=== PATIENT | female | born 1960 | race Asian ===

== ENCOUNTER 2019-09-06 15:28 | Emergency (ER) | payer OTHER, SELFPAY ==
[2019-09-06 15:36] VITALS: BP 150/67; PULSE 90; RESP 22; TEMP 36.6; O2SAT 100
[2019-09-06 16:54] LABS: Add Manual Diff / Slide Review NO; Basophils Absolute Auto 0 /uL (0-100); Basophils Percent Auto 0.6 % (0-2); Eosinophils Absolute Auto 0 /uL (0-450); Eosinophils Percent Auto 0.5 % (2-4); Hematocrit 37.7 % (36-46); Hemoglobin 12.9 g/dL (12.0-16.0); Lymphocytes Absolute Auto 2400 /uL (1100-4500); Lymphocytes Percent Auto 29.3 % (25-40); Mean Corpuscular HGB Conc 34.2 % (30-36); Mean Corpuscular Hemoglobin 33.1 PG (26-34); Mean Corpuscular Volume 96.9 fL (80-100); Monocytes Absolute Auto 500 /uL (0-900); Monocytes Percent Auto 6.6 % (3-14); Neutrophils Absolute Auto 5200 /uL (1500-7000); Platelet Count 203 X10^3/uL (150-400); Red Blood Cell Count 3.89 X10^6/uL (4.0-5.2); Red Cell Distribution Width 13.5 % (11.6-14.8); White Blood Cell Count 8.3 X10^3/uL (4.5-11.0)
[2019-09-06 17:00] LABS: Alanine Aminotransferase 18 IU/L (<35); Albumin 4.3 g/dL (3.5-5.0); Albumin Globulin Ratio 1.1 (1.0-2.8); Alkaline Phosphatase 74 U/L (38-126); Aspartate Aminotransferase 31 IU/L (14-36); Bilirubin Total 0.4 mg/dL (0.2-1.3); Blood Urea Nitrogen 16 mg/dL (7-17); Calcium 9.1 mg/dL (8.4-10.2); Carbon Dioxide 27 mmol/L (22-32); Chloride 109 mmol/L (98-107); Estimated Glomerular Filt Rate > 60.0 mL/min (>60); Glucose 97 mg/dL (80-110); HEMOLYSIS 19 (0-50); Potassium 3.7 mmol/L (3.4-5.1); Sodium 142 mmol/L (137-145); Total Protein 8.3 g/dL (6.3-8.2)
--- NOTE | 2019-09-06 17:00 | ED_ITS ---
HPI - GI Bleed General Chief complaint: GI Bleed Stated complaint: bleeding since yesterday Time Seen by Provider: 09/06/19 16:48 Source: patient Mode of arrival: Ambulatory Limitations: no limitations History of Present Illness HPI Narrative: 59-year-old female here for evaluation of approximately 2 days of bright red blood per rectum. He states symptoms started approximately 48 hours ago. Had multiple episodes of bright red blood. Did not have any pain in her abdomen that time. No nausea vomiting. No recent travel. No recent antibiotics. Was not painful for her to go to the bathroom within her abdomen also in the rectum. No urinary symptoms. No vaginal bleeding. Patient states that today she also had multiple episodes of bright red blood per rectum. Again no nausea vomiting or urinary symptoms or vaginal bleeding. She states that today she started to have left-sided abdominal pain. Patient does state she has had a colonoscopy approximately 8 years ago. She was told to return in 10 years for repeat. She was told everything was unremarkable. Denies any history of hemorrhoids. Review of Systems Constitutional Constitutional: Denies fatigue, Denies fever(s) and Denies headache(s) ENT Ears, Nose, Mouth, and Throat: Denies headache(s) Cardiovascular Cardiovascular: Denies chest pain and Denies dyspnea Respiratory Respiratory: Denies cough and Denies dyspnea Gastrointestinal Gastrointestinal: Reports abdominal pain, Denies melena, Reports hematochezia, Denies coffee ground emesis, Denies constipation, Reports diarrhea, Reports loose stools, Denies nausea and Denies vomiting Genitourinary Genitourinary: Denies dysuria Genitourinary: Denies dysuria Musculoskeletal Musculoskeletal: Denies back pain Integumentary/Breasts Skin/Breast: Denies lesions and Denies rash Neurologic Neurologic: Denies headache(s) Endocrine Endocrine: Denies fatigue Hematologic/Lymphatic Hematologic/Lymphatic: Denies easy bleeding and Denies easy bruising Allergic/Immunologic Allergic/Immunologic: Denies urticaria Patient History Medical History Healthy adult (Acute) Social History Smoking Status: Current every day smoker Smoking Status: Current every day smoker Exam Initial Vital Signs Initial Vital Signs: Vital Signs Temperature 97.9 F 09/06/19 15:36 Pulse Rate 90 09/06/19 15:36 Respiratory Rate 22 09/06/19 15:36 Blood Pressure 150/67 H 09/06/19 15:36 Pulse Oximetry 100 09/06/19 15:36 Const General: cooperative, comfortable, well developed and well groomed Limitations: mental status not altered HENCT Head: normal to inspection and normocephalic Resp Effort & Inspection: normal respiratory effort Auscultation: clear to auscultation bilaterally Cardio Rate: regular rate Rhythm: regular rhythm GI Inspection: non-distended Palpation: soft, No firm and tender (Left lower quadrant) Rectal Exam: visual inspection normal, normal sphincter tone, No abnormal stool, No hemorrhoids, No lesions, No mass and No tenderness Back/Spine/Pelvis Back: No CVA tenderness Skin Lesions: no lesions Rashes: no rashes Neuro General: patient alert and patient awake Cognition: normal cognition Speech: speech normal Extrem General: normal to inspection and capillary refill normal Psych Appearance: grossly normal and well kempt Scores GCS [place] coma scale eye opening: Spontaneous Sp coma scale verbal response: Orientated Sp coma scale motor response: Obey commands Sp coma scale total score: 15 Course Orders Ordered: ED Orders 09/06/19 16:40 Complete Blood Count AUTO DIFF Stat Comprehensive Metabolic Panel Stat 09/06/19 17:01 CT abdomen pelvis w con Stat Discontinued Medications Sodium Chloride (Normal Saline 0.9%) 1,000 mls @ 1,000 mls/hr IV BOLUS ONE Stop: 09/06/19 18:00 Last Admin: 09/06/19 17:46 Dose: Not Given Documented by: MARIA EUGENIA Vital Signs Vital signs: Vital Signs - 8 hr 09/06/19 15:36 09/06/19 17:30 Temperature 97.9 F Pulse Rate 90 81 Respiratory Rate 22 19 Blood Pressure 150/67 H Blood Pressure [Left Arm] 146/66 H Pulse Oximetry 100 99 MDM - GI Bleed Lab Data Attestation: I reviewed the patient's lab results. Result diagrams: 09/06/19 16:40 09/06/19 16:40 Labs: Lab Results 09/06/19 09/06/19 Range/Units 16:40 16:40 WBC 8.3 (4.5-11.0) X10^3/uL RBC 3.89 L (4.0-5.2) X10^6/uL Hgb 12.9 (12.0-16.0) g/dL Hct 37.7 (36-46) % MCV 96.9 (80-100) fL MCH 33.1 (26-34) PG MCHC 34.2 (30-36) % RDW 13.5 (11.6-14.8) % Plt Count 203 (150-400) X10^3/uL Neut % (Auto) 63.0 (50-75) % Lymph % (Auto) 29.3 (25-40) % [place] % (Auto) 6.6 (3-14) % Eos % (Auto) 0.5 L (2-4) % Baso % (Auto) 0.6 (0-2) % Neut # (Auto) 5200 (3324-6233) /uL Lymph # (Auto) 2400 (7378-1978) /uL [place] # (Auto) 500 (0-900) /uL Eos # (Auto) 0 (0-450) /uL Baso # (Auto) 0 (0-100) /uL Sodium 142 (137-145) mmol/L Potassium 3.7 (3.4-5.1) mmol/L Chloride 109 H (98-107) mmol/L Carbon Dioxide 27 (22-32) mmol/L BUN 16 (7-17) mg/dL Creatinine 0.84 (0.52-1.04) mg/dL Estimated GFR > 60.0 (>60) mL/min BUN/Creatinine Ratio 19.0 (6-22) Glucose 97 (80-110) mg/dL Calcium 9.1 (8.4-10.2) mg/dL Total Bilirubin 0.4 (0.2-1.3) mg/dL AST 31 (14-36) IU/L ALT 18 (<35) IU/L Alkaline Phosphatase 74 (38-126) U/L Total Protein 8.3 H (6.3-8.2) g/dL Albumin 4.3 (3.5-5.0) g/dL Globulin 4.0 (1.7-4.1) g/dL Albumin/Globulin Ratio 1.1 (1.0-2.8) Imaging Data CT scan - abdomen/pelvis: Radiologist's Impression: [address] [address] [address] Scan Report Signed Patient: Ruth Greene [facility]#: [id number] : 9Acct:[id number] Age/Sex: 59 / FDate of Service: 09/06/19 Loc: ED Accession Number: [id number] Procedure: CT abdomen pelvis w con Ordering Provider: Mode Ochoa D.O. PROCEDURE: CT ABDOMEN PELVIS W CON INDICATIONS: Left-sided abdominal pain concern for diverticulitis TECHNIQUE: After the administration of oral and intravenous contrast, 5 mm thick sections acquired from the diaphragms to the symphysis. 5 mm thick coronal and sagittal reformats were performed. For radiation dose reduction, the following was used: automated exposure control, adjustment of mA and/or kV according to patient size. COMPARISON: None. FINDINGS: Image quality: Excellent. ABDOMEN: Lung bases: Lung bases are clear. Heart size is normal. Solid organs: Liver is normal in size and enhancement. 2 subcentimeter hepatic cysts are noted, containing water density. Gallbladder appears normal. Biliary system is non-dilated. Pancreas enhances normally. Spleen is normal in size and enhancement. No adrenal nodules. Kidneys are normal in size and enhancement, without hydronephrosis. Peritoneum and bowel: Stomach, small bowel, and colon loops are normal in caliber and wall thickness. No free fluid or air. Nodes and vessels: No retroperitoneal or mesenteric adenopathy. Aorta and inferior vena cava are normal in caliber. Miscellaneous: No ventral hernias. PELVIS: Genitourinary: Bladder wall thickness is normal. Miscellaneous: No inguinal hernias or adenopathy. At the left lower quadrant a portion of the descending colon near the junction with the sigmoid colon is mildly wall thickening without acute diverticulitis adjacent, and this pattern of mild wall thickening with adjacent pericolonic edema extends into the proximal sigmoid colon. Appearances that of colitis rather than acute diverticulitis. There is a very small amount of free pelvic water density fluid deep within the cul-de-sac area. Bones: No suspicious bony lesions. No vertebral body compression fractures. IMPRESSION: Acute colitis, rather than diverticulitis, appears present at the left lower quadrant mild to moderate in overall severity. While there is mild diverticulosis no acute diverticulitis is suspected. Dictated by: Triston Aggarwal M.D. on 09/06/2019 at 17:32 Approved by: Triston Aggarwal M.D. on 09/06/2019 at 17:35 MDM Narrative Medical decision making narrative: Initially concern for diverticulitis however the CT scan is more consistent with colitis. This very well could explain her symptoms. She had no hemorrhoids or fissures on the exam. No recent antibiotics. No recent travel. No fevers. No indication for antibiotics today. Will hold on further workup for now. Patient was given return precautions and follow-up instructions. She expressed understanding and agreement. Discharge Plan Departure Patient Disposition: Home Clinical Impression: Colitis Discharge Date/Time: 09/06/19 17:51 Instructions: DI for Colitis Activity Restrictions/Additional Instructions: Be sure to increase your fluid intake. Contact your primary provider for follow-up. Return to the emergency department for any new or worsening symptoms
[2019-09-06 17:30] VITALS: BP 146/66; PULSE 81; RESP 19; O2SAT 99
== END 2019-09-06 17:51 | disposition home or self-care (01) ==
PROVIDERS: Emergency Provider Emergency Medicine
DX: K52.9 Noninfective gastroenteritis and colitis, unspecified (principal); R10.9 Unspecified abdominal pain; K92.1 Melena
CPT/HCPCS: 36415; 74177; 80053; 85025; 99284; 99285; Q9967

== ENCOUNTER 2020-11-24 19:58 | Emergency (ER) | payer OTHER, SELFPAY ==
[2020-11-24] VITALS (9 sets, daily range): BP systolic 110–127; BP diastolic 54–61; PULSE 82–106; RESP 18; TEMP 36.7–38.3; O2SAT 99–100; BMI 19.2
[2020-11-24 21:01] LABS: RBC Urine 0-1/HPF (0-5/HPF); WBC Urine >100/HPF (0-5/HPF)
[2020-11-24 21:01] LABS: Add Manual Diff / Slide Review NO; Basophils Absolute Auto 0 /uL (0-100); Basophils Percent Auto 0.3 % (0-2); Eosinophils Absolute Auto 0 /uL (0-450); Hematocrit 37.4 % (36-46); Hemoglobin 12.4 g/dL (12.0-16.0); Lymphocytes Absolute Auto 1500 /uL (1100-4500); Lymphocytes Percent Auto 11.7 % (25-40); Mean Corpuscular HGB Conc 33.2 % (30-36); Mean Corpuscular Hemoglobin 31.7 PG (26-34); Mean Corpuscular Volume 95.4 fL (80-100); Monocytes Absolute Auto 1100 /uL (0-900); Neutrophils Absolute Auto 10000 /uL (1500-7000); Platelet Count 175 X10^3/uL (150-400); Red Blood Cell Count 3.92 X10^6/uL (4.0-5.2); Red Cell Distribution Width 12.8 % (11.6-14.8); White Blood Cell Count 12.6 X10^3/uL (4.5-11.0)
[2020-11-24 21:02] LABS: Bacteria Urine Many (>30); Culture Indicated Urine Specimen Cultured; Hyaline Casts Urine 1-5/LPF; Squamous Epithelial Cell Urine 0-1 /HPF (0-5/HPF)
[2020-11-24] MEDS: SODIUM CHLORIDE 0.9% 1,000 ML 150 ML IV (21:03)
[2020-11-24 21:12] LABS: Alanine Aminotransferase 30 IU/L (<35); Albumin 4.1 g/dL (3.5-5.0); Alkaline Phosphatase 112 U/L (38-126); Aspartate Aminotransferase 32 IU/L (14-36); BUN Creatinine Ratio 21.2 (6-22); Bilirubin Total 1.2 mg/dL (0.2-1.3); Blood Urea Nitrogen 21 mg/dL (7-17); Carbon Dioxide 25 mmol/L (22-32); Chloride 99 mmol/L (98-107); Globulin 4.2 g/dL (1.7-4.1); Glucose 177 mg/dL (80-110); HEMOLYSIS < 15 (0-50); Lipase 31 U/L (23-300); Potassium 3.8 mmol/L (3.4-5.1); Sodium 133 mmol/L (137-145); Total Protein 8.3 g/dL (6.3-8.2)
--- NOTE | 2020-11-24 21:16 | DI.CT.S_ITS ---
PROCEDURE: CT ABDOMEN PELVIS W CON INDICATIONS: severe RLQ pain, fever, chills septic TECHNIQUE: After the administration of intravenous contrast, axial sections acquired from the lung bases to the pubic symphysis. Coronal and sagittal reformats were performed. For radiation dose reduction, the following was used: automated exposure control, adjustment of mA and/or kV according to patient size. COMPARISON: [facility], CT, CT ABDOMEN PELVIS W CON, 09/06/2019, 17:08. FINDINGS: Image quality: Excellent. Lung bases: Unremarkable. Heart: No significant findings. ABDOMEN: Liver: Unremarkable. Gallbladder: Unremarkable. Biliary ducts: Unremarkable. Pancreas: Unremarkable. Spleen: Unremarkable. Adrenal Glands: Unremarkable. Kidneys and Ureters: Right renal heterogeneous enhancement is noted. Mild right renal perinephric stranding. Left kidney is normal in appearance. No hydronephrosis. Stomach and Bowel: Stomach, small bowel loops, and colon are unremarkable. Scattered colonic diverticuli without evidence of diverticulitis. Appendix is not visualized, however no free fluid or inflammatory changes are noted adjacent to the cecum. Peritoneum: Trace right perinephric fluid and trace fluid in the right pericolic gutter. No free air. Ventral Wall: No hernias. Abdominal Nodes: No retroperitoneal or mesenteric adenopathy by size criteria. Vessels: Aorta and inferior vena cava are normal in size. Scattered atherosclerotic calcifications involving the abdominal and pelvic vasculature. PELVIS: Pelvic Organs: Unremarkable. Bladder: Unremarkable. Pelvic Nodes: No enlarged lymph nodes. Miscellaneous: No hernias are seen. Bones: Spine degenerative disc disease and facet arthropathy. IMPRESSION: 1. Right pyelonephritis. 2. Appendix not definitely visualized. No secondary signs of appendicitis such as free fluid or inflammatory changes noted adjacent to the cecum. 3. No free air. 4. Colonic diverticulosis without evidence of diverticulitis. Dictated by: Aida Marquis MD, PhD on 11/24/2020 at 21:32 Approved by: Aida Marquis MD, PhD on 11/24/2020 at 21:36
--- NOTE | 2020-11-24 21:18 | ED.FEMALEGU ---
HPI - Female Genitourinary General Chief complaint: Urogenital-Female Stated complaint: RIGHT SIDE LOWER PAIN THROWING UP Time Seen by Provider: 11/24/20 20:10 Source: patient Mode of arrival: Ambulatory Limitations: no limitations History of Present Illness HPI Narrative: 60-year-old female daily smoker without chronic medical problems presents with a chief complaint of a day or 2 gradually worsening right lower quadrant and flank pain. She has had urinary frequency and urgency but denies any hematuria. She has had nausea and a poor appetite but denies vomiting. She has had low-grade fever and is generally unwell. She denies any headache or blurred vision. She denies runny nose, sore throat or cough. She denies any chest pain or shortness of breath Related Data Previous Rx's Medication Instructions Recorded cefpodoxime 200 mg tablet 200 mg PO BID 10 Days #20 tab 11/24/20 hydrocodone 5 mg-acetaminophen 325 1 tab PO Q4-6H PRN #10 tab 11/24/20 mg tablet ketorolac 10 mg tablet 10 mg PO Q6H PRN #14 tab 11/24/20 ondansetron 4 mg disintegrating 4 mg PO TID-QID PRN #10 tab 11/24/20 tablet Allergies Allergy/AdvReac Type Severity Reaction Status Date / Time Sulfa (Sulfonamide Allergy Hives Verified 11/24/20 20:17 Antibiotics) Review of Systems Review of Systems Narrative: GENERAL: She HPI HEENT: Denies sinus pain, ear pain, sore throat, difficulty swallowing, dizziness. RESPIRATORY: Denies dyspnea, cough, wheezing, hemoptysis, sputum. CARDIOVASCULAR: Denies chest pain, palpitations, orthopnea, edema, GASTROINTESTINAL: See HPI : Denies dysuria, frequency, incontinence, hematuria, urinary retention. MUSCULOSKELETAL: denies weakness, joint pain, or bony pain SKIN: Denies rash, skin lesions, or other NEUROLOGIC: Denies weakness, headache, numbness, change in speech, confusion, seizures, incoordination. PSYCHIATRIC: No concerning psychosocial issues. 12 point review of systems is negative except for those stated above Patient History Medical History Healthy adult alcohol intake frequency: 0-2 drinks per day Substance Use Type: does not use Exam Narrative Exam Narrative: GENERAL: [60] year old patient appears stated age. Well-developed patient, in mild distress. Walking slowly into triage, rubbing her suprapubic region and right flank HEAD: Atraumatic. Normocephalic. EYES: Pupils equal round and reactive. Extraocular motions intact. No scleral icterus. No injection or drainage. ENT: Nose without bleeding, purulent drainage. Throat without erythema, tonsillar hypertrophy or exudate. Airway patent. NECK: Trachea midline. Non tender CARDIOVASCULAR: Regular rate and rhythm without murmurs, gallops, or rubs. RESPIRATORY: Clear to auscultation. Breath sounds equal bilaterally. No wheezes, rales, or rhonchi. GASTROINTESTINAL: Abdomen soft, mildly tender in suprapubic region with some right-sided CVA tenderness, nondistended. EXTREMITIES: No edema or joint tenderness. BACK: Nontender without deformity or crepitance. No flank tenderness. NEURO: AOx3. SKIN: No rash or erythema of visible areas Initial Vital Signs Initial Vital Signs: Vital Signs Temperature 101.0 F H 11/24/20 20:12 Pulse Rate 106 H 11/24/20 20:12 Respiratory Rate 18 11/24/20 20:12 Blood Pressure 110/54 L 11/24/20 20:12 Pulse Oximetry 100 11/24/20 20:12 Course Orders Ordered: ED Orders 11/24/20 20:38 Urine Culture Stat Urine Microscopic Stat 11/24/20 20:55 Complete Blood Count AUTO DIFF Stat Comprehensive Metabolic Panel Stat Lactate (Lactic Acid) Stat Lipase Stat 11/24/20 21:16 CT abdomen pelvis w con Stat 11/24/20 21:40 Blood Culture Stat 11/24/20 22:20 COVID19 - ADMIT (LIVESTOCK NUTRITIONIST swab/PCR) Stat Sodium Chloride (Normal Saline 0.9%) 1,000 mls @ 150 mls/hr IV CONT UZIEL Last Infusion: 11/24/20 22:48 Dose: 0 mls/hr Documented by: Admin: 11/24/20 21:03 Dose: 150 mls/hr Documented by: GILBERT Lactated Ringer's (Lactated Ringers) 1,524.06 mls @ 508.02 mls/hr 30 ml/kg infuse over 3 hr (1524.06 ml) IV NOW ONE Stop: 11/25/20 00:15 Last Infusion: 11/24/20 23:31 Dose: 0 mls/hr Documented by: Admin: 11/24/20 21:25 Dose: 508.02 mls/hr Documented by: LIN Discontinued Medications Hydrocodone Bitart/Acetaminophen (Hydrocodone/Acet 5/325 Prepack) 1 bottle MISC SEEINSTR ONE Stop: 11/24/20 22:25 Last Admin: 11/24/20 23:31 Dose: 1 bottle Documented by: GILBERT Ceftriaxone Sodium 1,000 mg/ (Sodium Chloride) 100 mls @ 200 mls/hr IV NOW ONE Stop: 11/24/20 21:17 Last Infusion: 11/24/20 22:22 Dose: 0 mls/hr Documented by: Admin: 11/24/20 21:25 Dose: 200 mls/hr Documented by: LIN Ketorolac Tromethamine (Ketorolac 30 Mg/Ml Vial) 15 mg IV NOW ONE Stop: 11/24/20 21:19 Last Admin: 11/24/20 21:35 Dose: 15 mg Documented by: LIN Ondansetron HCl (Ondansetron 4 Mg/2 Ml Inj) 4 mg IV NOW ONE Stop: 11/24/20 21:19 Last Admin: 11/24/20 21:36 Dose: 4 mg Documented by: LIN Ondansetron HCl (Ondansetron 4 Mg Odt Prepack) 1 bottle MISC SEEINSTR ONE Stop: 11/24/20 22:25 Last Admin: 11/24/20 23:31 Dose: 1 bottle Documented by: GILBERT Reevaluation(s) Reevaluation #1: Patient feels much better after above-stated therapies. She walks upright to the bathroom. Pain is controlled, she is tolerating orals Vital Signs Vital signs: Vital Signs - 8 hr 11/24/20 20:12 11/24/20 21:05 11/24/20 21:06 Temperature 101.0 F H Pulse Rate 106 H 99 H 97 H Respiratory Rate 18 Blood Pressure 110/54 L 127/61 Pulse Oximetry 100 100 100 11/24/20 21:44 11/24/20 21:45 11/24/20 22:00 Temperature Pulse Rate 96 H 91 H 89 Respiratory Rate Blood Pressure 124/57 L 119/56 L Pulse Oximetry 99 100 100 11/24/20 22:30 11/24/20 23:00 Temperature Pulse Rate 86 82 Respiratory Rate Blood Pressure 115/59 L 121/60 Pulse Oximetry 99 100 MDM - Female Genitourinary Lab Data Result diagrams: 11/24/20 20:55 11/24/20 20:55 Labs: Lab Results 11/24/20 11/24/20 11/24/20 Range/Units 20:38 20:55 20:55 WBC 12.6 H (4.5-11.0) X10^3/uL RBC 3.92 L (4.0-5.2) X10^6/uL Hgb 12.4 (12.0-16.0) g/dL Hct 37.4 (36-46) % MCV 95.4 (80-100) fL MCH 31.7 (26-34) PG MCHC 33.2 (30-36) % RDW 12.8 (11.6-14.8) % Plt Count 175 (150-400) X10^3/uL Neut % (Auto) 79.0 H (50-75) % Lymph % (Auto) 11.7 L (25-40) % [place] % (Auto) 9.0 (3-14) % Eos % (Auto) 0.0 L (2-4) % Baso % (Auto) 0.3 (0-2) % Neut # (Auto) 56615 H (1917-4345) /uL Lymph # (Auto) 1500 (4055-2573) /uL [place] # (Auto) 1100 H (0-900) /uL Eos # (Auto) 0 (0-450) /uL Baso # (Auto) 0 (0-100) /uL Sodium 133 L (137-145) mmol/L Potassium 3.8 (3.4-5.1) mmol/L Chloride 99 (98-107) mmol/L Carbon Dioxide 25 (22-32) mmol/L BUN 21 H (7-17) mg/dL Creatinine 0.99 (0.52-1.04) mg/dL Estimated GFR 57.0 L (>60) mL/min BUN/Creatinine Ratio 21.2 (6-22) Glucose 177 H (80-110) mg/dL Lactate (0.7-2.1) mmol/L Calcium 9.0 (8.4-10.2) mg/dL Total Bilirubin 1.2 (0.2-1.3) mg/dL AST 32 (14-36) IU/L ALT 30 (<35) IU/L Alkaline Phosphatase 112 (38-126) U/L Total Protein 8.3 H (6.3-8.2) g/dL Albumin 4.1 (3.5-5.0) g/dL Globulin 4.2 H (1.7-4.1) g/dL Albumin/Globulin Ratio 1.0 (1.0-2.8) Lipase 31 (23-300) U/L Urine RBC 0-1/hpf (0-5/HPF) Urine WBC >100/hpf H (0-5/HPF) Ur Squamous Epith Cells 0-1 /hpf (0-5/HPF) Urine Bacteria Many (>30) H (None) Hyaline Casts 1-5/lpf (None) Ur Culture Indicated? Specimen cultured SARS-CoV-2 (PCR) (Negative) 11/24/20 11/24/20 Range/Units 20:55 22:20 WBC (4.5-11.0) X10^3/uL RBC (4.0-5.2) X10^6/uL Hgb (12.0-16.0) g/dL Hct (36-46) % MCV (80-100) fL MCH (26-34) PG MCHC (30-36) % RDW (11.6-14.8) % Plt Count (150-400) X10^3/uL Neut % (Auto) (50-75) % Lymph % (Auto) (25-40) % [place] % (Auto) (3-14) % Eos % (Auto) (2-4) % Baso % (Auto) (0-2) % Neut # (Auto) (1417-0829) /uL Lymph # (Auto) (9752-6735) /uL [place] # (Auto) (0-900) /uL Eos # (Auto) (0-450) /uL Baso # (Auto) (0-100) /uL Sodium (137-145) mmol/L Potassium (3.4-5.1) mmol/L Chloride (98-107) mmol/L Carbon Dioxide (22-32) mmol/L BUN (7-17) mg/dL Creatinine (0.52-1.04) mg/dL Estimated GFR (>60) mL/min BUN/Creatinine Ratio (6-22) Glucose (80-110) mg/dL Lactate 1.1 (0.7-2.1) mmol/L Calcium (8.4-10.2) mg/dL Total Bilirubin (0.2-1.3) mg/dL AST (14-36) IU/L ALT (<35) IU/L Alkaline Phosphatase (38-126) U/L Total Protein (6.3-8.2) g/dL Albumin (3.5-5.0) g/dL Globulin (1.7-4.1) g/dL Albumin/Globulin Ratio (1.0-2.8) Lipase (23-300) U/L Urine RBC (0-5/HPF) Urine WBC (0-5/HPF) Ur Squamous Epith Cells (0-5/HPF) Urine Bacteria (None) Hyaline Casts (None) Ur Culture Indicated? SARS-CoV-2 (PCR) Negative (Negative) Urine Dip Bedside Urine Glucose Negative Bedside Urine Bilirubin - Negative Bedside Urine Ketone +/- 5 Urine Specific [place] 1.020 Bedside Urine Occult Blood ++ Bedside Urine pH 6.0 Bedside Urine Protein + 30 Bedside Urine Urobilinogen 1+ 2mg Bedside Urine Nitrite - Negative Bedside Urine Leukocytes ++ [address] scan - abdomen/pelvis: Radiologist's Impression: Ruth Greene 60 F [address] Scan ReportSigned Patient: Ruth Greene AMR#: [id number]: 1960cct:[id number]/Sex: 60 / FDate of Service: 11/24/20Loc: EDAccession Number: [id number] Procedure: CT abdomen pelvis w con Ordering Provider: Christiano Michaels D.O. PROCEDURE: CT ABDOMEN PELVIS W CON INDICATIONS: severe RLQ pain, fever, chills septic TECHNIQUE: After the administration of intravenous contrast, axial sections acquired from the lung bases to the pubic symphysis. Coronal and sagittal reformats were performed. For radiation dose reduction, the following was used: automated exposure control, adjustment of mA and/or kV according to patient size. COMPARISON: [facility], CT, CT ABDOMEN PELVIS W CON, 09/06/2019, 17:08. FINDINGS: Image quality: Excellent. Lung bases: Unremarkable. Heart: No significant findings. ABDOMEN: Liver: Unremarkable. Gallbladder: Unremarkable. Biliary ducts: Unremarkable. Pancreas: Unremarkable. Spleen: Unremarkable. Adrenal Glands: Unremarkable. Kidneys and Ureters: Right renal heterogeneous enhancement is noted. Mild right renal perinephric stranding. Left kidney is normal in appearance. No hydronephrosis. Stomach and Bowel: Stomach, small bowel loops, and colon are unremarkable. Scattered colonic diverticuli without evidence of diverticulitis. Appendix is not visualized, however no free fluid or inflammatory changes are noted adjacent to the cecum. Peritoneum: Trace right perinephric fluid and trace fluid in the right pericolic gutter. No free air. Ventral Wall: No hernias. Abdominal Nodes: No retroperitoneal or mesenteric adenopathy by size criteria. Vessels: Aorta and inferior vena cava are normal in size. Scattered atherosclerotic calcifications involving the abdominal and pelvic vasculature. PELVIS: Pelvic Organs: Unremarkable. Bladder: Unremarkable. Pelvic Nodes: No enlarged lymph nodes. Miscellaneous: No hernias are seen. Bones: Spine degenerative disc disease and facet arthropathy. IMPRESSION: 1. Right pyelonephritis. 2. Appendix not definitely visualized. No secondary signs of appendicitis such as free fluid or inflammatory changes noted adjacent to the cecum. 3. No free air. 4. Colonic diverticulosis without evidence of diverticulitis. Dictated by: Aida Marquis MD, PhD on 11/24/2020 at 21:32 Approved by: Aida Marquis MD, PhD on 11/24/2020 at 21:36 [facility] Narrative Medical decision making narrative: Patient did have some septic markers initially but met no criteria for severe sepsis. Her urine suggests infection and CT confirms pyelonephritis. No evidence of appendicitis, obstructive uropathy or other intra-abdominal issue. She feels much better after above-stated therapies, vitals are reassuring. Her pain is controlled and she tolerates oral hydration. She is given return precautions and questions have been answered to her apparent satisfaction Discharge Plan Departure Patient Disposition: Home Clinical Impression: Pyelonephritis Instructions: DI for Kidney Infection Activity Restrictions/Additional Instructions: *You have been diagnosed with [acute pyelonephritis (kidney infection)] *What to do: *Please continue to take your regular medications as directed. [x ] New medication prescriptions sent to your pharmacy: [place]] [ ] New medication written as a paper prescription [ ] No new medications given *Please follow up with your primary care provider in 2-3 days, call for an appointment. Let them know you were seen in the Emergency Department and that we ask that you be seen in follow up. We will electronically transmit a record of today's note if your PCP is in our system *If you do not have a primary care provider please contact the [facility] Resource line at [phone]. They will ask some questions about your medical history and help get you set up with a doctor in the community. *Return to Emergency Department if you should have any new, worsening or concerning symptoms, such as [fever greater than 101 F, shaking chills, worsening pain, persistent vomiting or other bothersome symptoms] Prescriptions: New cefpodoxime 200 mg tablet 200 mg PO BID 10 Days Qty: 20 RF: 0 hydrocodone-acetaminophen 5-325 mg tablet 1 tab PO Q4-6H PRN (Reason: pain) Qty: 10 RF: 0 ketorolac 10 mg tablet 10 mg PO Q6H PRN (Reason: pain) Qty: 14 RF: 0 ondansetron 4 mg tablet,disintegrating 4 mg PO TID-QID PRN (Reason: nausea and vomiting) Qty: 10 RF: 0 Referrals: [facility] [Outside] [facility] [Outside] Stand Alone Forms: Work Release Note
[2020-11-24] MEDS: cefTRIAXone 1,000 MG in SODIUM CHLORIDE 0.9% 100 ML 200 ML IV (21:25)
[2020-11-24] MEDS: LACTATED RINGERS 508.02 ML IV (21:25)
[2020-11-24 21:31] LABS: Lactate (Lactic Acid) 1.1 mmol/L (0.7-2.1)
[2020-11-24] MEDS: KETOROLAC 30 MG/ML VIAL 15 MG IV (21:35)
[2020-11-24] MEDS: ONDANSETRON 4 MG/2 ML INJ IV (21:36)
[2020-11-24 23:15] LABS: COVID19 - ADMIT (NP swab/PCR) Negative (Negative)
[2020-11-24] MEDS: HYDROCODONE/ACET 5/325 PREPACK 1 BOTTLE MISC (23:31)
[2020-11-24] MEDS: ONDANSETRON 4 MG ODT PREPACK 1 BOTTLE MISC (23:31)
[2020-11-25 10:25] LABS: Acinetobacter baumannii Not Detected (Not Detect); Candida albicans Not Detected (Not Detect); Candida glabrata Not Detected (Not Detect); Candida krusei Not Detected (Not Detect); Candida parapsilosis Not Detected (Not Detect); Candida tropicalis Not Detected (Not Detect); E. coli Detected (Not Detect); Enterobacter cloacae complex Not Detected (Not Detect); Enterobacteriaceae species Detected (Not Detect); Enterococcus species Not Detected (Not Detect); Haemophilus influenzae Not Detected (Not Detect); KPC (carbapenem-resist gene) Not Detected (Not Detect); Listeria monocytogenes Not Detected (Not Detect); Neisseria meningitidis Not Detected (Not Detect); Proteus species Not Detected (Not Detect); Pseudomonas aeruginosa Not Detected (Not Detect); Serratia marcescens Not Detected (Not Detect); Staphylococcus species Not Detected (Not Detect); Streptococcus agalactiae (Gr B Not Detected (Not Detect); Streptococcus pneumonia Not Detected (Not Detect); Streptococcus pyogenes (Gr A) Not Detected (Not Detect); Streptococcus species Not Detected (Not Detect)
== END 2020-11-24 23:47 | disposition home or self-care (01) ==
PROVIDERS: Emergency Provider Emergency Medicine
DX: N12 Tubulo-interstitial nephritis, not specified as acute or chronic (principal); R11.0 Nausea; R50.9 Fever, unspecified; Z20.822 Contact with and (suspected) exposure to COVID-19
CPT/HCPCS: 36415; 74177; 80053; 81003; 81015; 83605; 83690; 85025; 87040; 87077; 87086; 87150; 87186; 87205; 87635; 96365; 96375; 99284; C9803; J0696; J1885; J2405; Q9967

== ENCOUNTER 2020-11-25 18:47 | Inpatient (IN) | payer OTHER, SELFPAY ==
[2020-11-25 19:12] VITALS: BP 120/61; PULSE 74; RESP 16; TEMP 36.5; O2SAT 97; BMI 18.8
[2020-11-25 19:44] LABS: Add Manual Diff / Slide Review NO; Basophils Absolute Auto 0 /uL (0-100); Basophils Percent Auto 0.2 % (0-2); Eosinophils Absolute Auto 0 /uL (0-450); Hematocrit 34.1 % (36-46); Hemoglobin 11.4 g/dL (12.0-16.0); Lymphocytes Absolute Auto 1200 /uL (1100-4500); Lymphocytes Percent Auto 11.2 % (25-40); Mean Corpuscular HGB Conc 33.5 % (30-36); Mean Corpuscular Hemoglobin 32.4 PG (26-34); Mean Corpuscular Volume 96.7 fL (80-100); Monocytes Absolute Auto 800 /uL (0-900); Monocytes Percent Auto 7.7 % (3-14); Neutrophils Absolute Auto 8400 /uL (1500-7000); Neutrophils Percent Auto 80.9 % (50-75); Platelet Count 154 X10^3/uL (150-400); Red Blood Cell Count 3.53 X10^6/uL (4.0-5.2); Red Cell Distribution Width 12.6 % (11.6-14.8); White Blood Cell Count 10.4 X10^3/uL (4.5-11.0)
--- NOTE | 2020-11-25 19:50 | PC.NURSE ---
pt denies complaints at this time.
[2020-11-25 20:00] LABS: Alanine Aminotransferase 28 IU/L (<35); Albumin 3.5 g/dL (3.5-5.0); Albumin Globulin Ratio 0.9 (1.0-2.8); Alkaline Phosphatase 96 U/L (38-126); Aspartate Aminotransferase 36 IU/L (14-36); BUN Creatinine Ratio 24.8 (6-22); Bilirubin Total 1.1 mg/dL (0.2-1.3); Blood Urea Nitrogen 27 mg/dL (7-17); Calcium 8.6 mg/dL (8.4-10.2); Carbon Dioxide 25 mmol/L (22-32); Chloride 102 mmol/L (98-107); Globulin 3.7 g/dL (1.7-4.1); Glucose 208 mg/dL (80-110); HEMOLYSIS 16 (0-50); Sodium 134 mmol/L (137-145); Total Protein 7.2 g/dL (6.3-8.2)
--- NOTE | 2020-11-25 20:14 | ED_ITS ---
HPI - Female Genitourinary <Av Byrne PA-C - Last Filed: 11/25/20 20:45> General Chief complaint: Urogenital-Female Stated complaint: Kidney/Bladder Infection, Blood Infection Time Seen by Provider: 11/25/20 19:03 Source: patient and family Mode of arrival: Ambulatory Limitations: no limitations History of Present Illness HPI Narrative: 60-year-old female with no significant past medical history, diagnosed yesterday with pyelonephritis in the ED, returns to the ED due to positive blood cultures from yesterday. Patient was seen in our ED yesterday, diagnosed with pyelonephritis, discharged home with cefpodoxime. Her blood cultures and urine were positive for E coli, notified by the ED to return for further treatment. In the ED, patient denies fever, chills, chest pain, shortness of breath, nausea, vomiting, abdominal pain, flank pain, lightheadedness, dizziness, syncope, dysuria. Patient reports that she feels better since starting the cefpododixime yesterday. Related Data Previous Rx's Medication Instructions Recorded hydrocodone 5 mg-acetaminophen 325 1 tab PO Q4-6H PRN #10 tab 11/24/20 mg tablet ketorolac 10 mg tablet 10 mg PO Q6H PRN #14 tab 11/24/20 ondansetron 4 mg disintegrating 4 mg PO TID-QID PRN #10 tab 11/24/20 tablet Allergies Allergy/AdvReac Type Severity Reaction Status Date / Time Sulfa (Sulfonamide Allergy Hives Verified 11/24/20 20:17 Antibiotics) Review of Systems <Av Byrne PA-C - Last Filed: 11/25/20 20:45> Constitutional Constitutional: Denies chills, Denies fatigue, Denies fever(s), Denies frequent falls, Denies lethargy and Denies weakness Eyes Eyes: Denies change in vision, Denies eye discharge, Denies irritation and Denies loss of vision ENT Ears, Nose, Mouth, and Throat: Denies change in voice, Denies dizziness, Denies neck pain, Denies sore throat and Denies throat swelling Cardiovascular Cardiovascular: Denies chest pain, Denies irregular heart rhythm, Denies lightheadedness, Denies palpitations, Denies dyspnea, Denies dyspnea on exertion and Denies orthopnea Respiratory Respiratory: Denies cough, Denies dyspnea, Denies dyspnea on exertion and Denies wheezing Gastrointestinal Gastrointestinal: Denies abdominal pain, Denies change in bowel habits, Denies diarrhea, Denies nausea and Denies vomiting Musculoskeletal Musculoskeletal: Denies neck pain and Denies numbness Integumentary/Breasts Skin/Breast: Denies pruritus, Denies erythema, Denies rash and Denies wounds Neurologic Neurologic: Denies behavioral changes, Denies confusion, Denies dizziness, Denies frequent falls, Denies loss of vision, Denies numbness and Denies weakness Psychiatric Psychiatric: Denies anxiety, Denies behavioral changes, Denies confusion, Denies depression, Denies homicidal ideation and Denies suicidal ideation Endocrine Endocrine: Denies fatigue, Denies flushing and Denies palpitations Hematologic/Lymphatic Hematologic/Lymphatic: Denies easy bruising Allergic/Immunologic Allergic/Immunologic: Denies urticaria, Denies throat swelling and Denies wheezing Patient History <vA Byrne PA-C - Last Filed: 11/25/20 20:45> Medical History (Updated 11/25/20 @ 22:37 by Maxine Honeycutt MD) Healthy adult Surgical History (Updated 11/26/20 @ 02:59 [facility] No history of previous surgery Family History (Updated 11/26/20 @ 03:00 by MANOJ Pastrana) Mother Cancer Father Stroke alcohol intake frequency: 0-2 drinks per day Substance Use Type: does not use Exam <Av Byrne PA-C - Last Filed: 11/25/20 20:45> Initial Vital Signs Initial Vital Signs: Vital Signs Temperature 97.7 F 11/25/20 19:12 Pulse Rate 74 11/25/20 19:12 Respiratory Rate 16 11/25/20 19:12 Blood Pressure 120/61 11/25/20 19:12 Pulse Oximetry 97 11/25/20 19:12 Const General: cooperative HENMT Head: normocephalic and atraumatic Ears: external ears normal and TM's normal bilaterally Nose: external nose normal and No nasal discharge Face and sinus: sinuses nontender, face symmetric, no sinus tenderness and No dry mucous membranes Mouth: oral mucosae normal and moist mucous membranes Teeth and gingiva: dentition normal Throat: tonsils normal and uvula midline Eyes General: appearance normal, both eyes and all related structures Eyelids: eyelids normal Conjunctivae: conjunctivae normal Sclera: sclerae normal Pupils: PERRL EOM: EOM intact bilaterally Neck Neck: normal visual inspection, trachea midline, No lymphadenopathy, No midline deformity and No JVD Lymphatic: No lymphedema Chest Chest: normal inspection of the chest Resp Effort & Inspection: normal respiratory effort, able to speak in complete sentences, no respiratory distress and no use of accessory muscles Auscultation: clear to auscultation bilaterally, no rales, no rhonchi and no wheezes Cardio Rate: regular rate Rhythm: regular rhythm Heart Sounds: no click, no gallops, no murmurs and no rubs Pulses: normal peripheral pulses GI Inspection: non-distended Palpation: soft, no hepatosplenomegaly, No guarding, No pulsatile mass and No tender Auscultation: normal bowel sounds Back/Spine/Pelvis Back: No CVA tenderness Cervical Spine: cervical ROM normal and No pain with cervical ROM Thoracic/Lumbar Spine: thoracic and lumbar spine normal to inspection Skin General: no rashes or lesions noted, No jaundice and No petechiae Neuro General: patient alert, patient oriented x3, gait normal and no focal motor deficits Speech: speech normal Extrem General: full ROM, no clubbing, cyanosis or edema, no pedal edema and no calf tenderness Psych Appearance: well kempt Mental Status: mental status grossly normal Attitude: cooperative Thought Content: normal and suicidality Judgment: judgment good <Maxine Honeycutt MD - Last Filed: 11/26/20 04:40> Initial Vital Signs Initial Vital Signs: Vital Signs Temperature 97.7 F 11/25/20 19:12 Pulse Rate 74 11/25/20 19:12 Respiratory Rate 16 11/25/20 19:12 Blood Pressure 120/61 11/25/20 19:12 Pulse Oximetry 97 11/25/20 19:12 Course <Av Byrne PA-C - Last Filed: 11/25/20 20:45> Orders Ordered: ED Orders 11/25/20 19:40 Complete Blood Count AUTO DIFF Stat Comprehensive Metabolic Panel Stat Lactate (Lactic Acid) Stat 11/25/20 20:20 Blood Culture Stat 11/25/20 20:35 COVID19 - ADMIT ([employer] swab/PCR) Stat Acetaminophen (Acetaminophen 325 Mg Tablet) 650 mg PO Q6HR PRN PRN Reason: Fever/Mild Pain (1-3) Last Admin: 11/25/20 22:57 Dose: 650 mg Documented by: TIMMY Dextrose (Dextrose 50 % In Water 25 Gm/50 Ml Syringe) 25 gm IV PRN PRN PRN Reason: Hypoglycemia Enoxaparin Sodium (Enoxaparin 40 Mg/0.4 Ml Syringe) 40 mg SUBCUT DAILY UZIEL Lactated Ringer's (Lactated Ringers) 1,000 mls @ 60 mls/hr IV CONT UZIEL Last Admin: 11/25/20 22:10 Dose: 60 mls/hr Documented by: TIMMY Ceftriaxone Sodium 1,000 mg/ (Sodium Chloride) 100 mls @ 200 mls/hr IV Q24H [facility] Insulin Human Lispro (Insulin Lispro 100 Unit/Ml 3ml Vial) 0 unit SUBCUT ACHS UZIEL; Protocol Ketorolac Tromethamine (Ketorolac 30 Mg/Ml Vial) 30 mg IV Q6H UZIEL Stop: 12/01/20 03:48 Last Admin: 11/26/20 04:09 Dose: 30 mg Documented by: ESEQUIEL Naloxone HCl (Naloxone 0.4 Mg/Ml Vial) 0.2 mg IV Q2MIN PRN PRN Reason: Opiate Reversal Ondansetron HCl (Ondansetron 4 Mg Odt) 4 mg PO Q8HR PRN PRN Reason: Nausea And Vomiting Last Admin: 11/25/20 22:57 Dose: 4 mg Documented by: TIMMY Discontinued Medications Ceftriaxone Sodium 2,000 mg/ (Sodium Chloride) 100 mls @ 200 mls/hr IV NOW ONE Stop: 11/25/20 19:47 Last Infusion: 11/25/20 21:32 Dose: 0 mls/hr Documented by: Admin: 11/25/20 20:57 Dose: 200 mls/hr Documented by: KENAN Sodium Chloride (Normal Saline 0.9%) 1,000 mls @ 1,000 mls/hr IV BOLUS ONE Stop: 11/25/20 21:28 Last Infusion: 11/25/20 21:49 Dose: 0 mls/hr Documented by: Admin: 11/25/20 20:56 Dose: 1,000 mls/hr Documented by: KENAN Lactated Ringer's (Lactated Ringers) 500 mls @ 1,000 mls/hr IV BOLUS ONE Stop: 11/26/20 03:21 Last Admin: 11/26/20 03:30 Dose: Not Given Documented by: ESEQUIEL Vital Signs Vital signs: Vital Signs - 8 hr 11/25/20 19:12 Temperature 97.7 F Pulse Rate 74 Respiratory Rate 16 Blood Pressure 120/61 Pulse Oximetry 97 <Maxine Honeycutt MD - Last Filed: 11/26/20 04:40> Orders Ordered: ED Orders 11/25/20 19:40 Complete Blood Count AUTO DIFF Stat Comprehensive Metabolic Panel Stat Lactate (Lactic Acid) Stat 11/25/20 20:20 Blood Culture Stat 11/25/20 20:35 COVID19 - ADMIT ([employer] swab/PCR) Stat Acetaminophen (Acetaminophen 325 Mg Tablet) 650 mg PO Q6HR PRN PRN Reason: Fever/Mild Pain (1-3) Last Admin: 11/25/20 22:57 Dose: 650 mg Documented by: TIMMY Dextrose (Dextrose 50 % In Water 25 Gm/50 Ml Syringe) 25 gm IV PRN PRN PRN Reason: Hypoglycemia Enoxaparin Sodium (Enoxaparin 40 Mg/0.4 Ml Syringe) 40 mg SUBCUT DAILY UZIEL Lactated Ringer's (Lactated Ringers) 1,000 mls @ 60 mls/hr IV CONT UZIEL Last Admin: 11/25/20 22:10 Dose: 60 mls/hr Documented by: TIMMY Ceftriaxone Sodium 1,000 mg/ (Sodium Chloride) 100 mls @ 200 mls/hr IV Q24H UZIEL Insulin Human Lispro (Insulin Lispro 100 Unit/Ml 3ml Vial) 0 unit SUBCUT ACHS UZIEL; Protocol Ketorolac Tromethamine (Ketorolac 30 Mg/Ml Vial) 30 mg IV Q6H UZIEL Stop: 12/01/20 03:48 Last Admin: 11/26/20 04:09 Dose: 30 mg Documented by: ESEQUIEL Naloxone HCl (Naloxone 0.4 Mg/Ml Vial) 0.2 mg IV Q2MIN PRN PRN Reason: Opiate Reversal Ondansetron HCl (Ondansetron 4 Mg Odt) 4 mg PO Q8HR PRN PRN Reason: Nausea And Vomiting Last Admin: 11/25/20 22:57 Dose: 4 mg Documented by: TIMMY Discontinued Medications Ceftriaxone Sodium 2,000 mg/ (Sodium Chloride) 100 mls @ 200 mls/hr IV NOW ONE Stop: 11/25/20 19:47 Last Infusion: 11/25/20 21:32 Dose: 0 mls/hr Documented by: Admin: 11/25/20 20:57 Dose: 200 mls/hr Documented by: KENAN Sodium Chloride (Normal Saline 0.9%) 1,000 mls @ 1,000 mls/hr IV BOLUS ONE Stop: 11/25/20 21:28 Last Infusion: 11/25/20 21:49 Dose: 0 mls/hr Documented by: Admin: 11/25/20 20:56 Dose: 1,000 mls/hr Documented by: KENAN Lactated Ringer's (Lactated Ringers) 500 mls @ 1,000 mls/hr IV BOLUS ONE Stop: 11/26/20 03:21 Last Admin: 11/26/20 03:30 Dose: Not Given Documented by: ESEQUIEL Vital Signs Vital signs: Vital Signs - 8 hr 11/25/20 19:12 Temperature 97.7 F Pulse Rate 74 Respiratory Rate 16 Blood Pressure 120/61 Pulse Oximetry 97 MDM - Female Genitourinary <Av Byrne PA-C - Last Filed: 11/25/20 20:45> Lab Data Result diagrams: 11/25/20 19:40 11/25/20 19:40 Labs: Lab Results 11/25/20 11/25/20 11/25/20 Range/Units 19:40 19:40 19:40 WBC 10.4 (4.5-11.0) X10^3/uL RBC 3.53 L (4.0-5.2) X10^6/uL Hgb 11.4 L (12.0-16.0) g/dL Hct 34.1 L (36-46) % MCV 96.7 (80-100) fL MCH 32.4 (26-34) PG MCHC 33.5 (30-36) % RDW 12.6 (11.6-14.8) % Plt Count 154 (150-400) X10^3/uL Neut % (Auto) 80.9 H (50-75) % Lymph % (Auto) 11.2 L (25-40) % Reynolds % (Auto) 7.7 (3-14) % Eos % (Auto) 0.0 L (2-4) % Baso % (Auto) 0.2 (0-2) % Neut # (Auto) 8400 H (7854-1587) /uL Lymph # (Auto) 1200 (1654-9673) /uL Reynolds # (Auto) 800 (0-900) /uL Eos # (Auto) 0 (0-450) /uL Baso # (Auto) 0 (0-100) /uL Sodium 134 L (137-145) mmol/L Potassium 4.0 (3.4-5.1) mmol/L Chloride 102 (98-107) mmol/L Carbon Dioxide 25 (22-32) mmol/L BUN 27 H (7-17) mg/dL Creatinine 1.09 H (0.52-1.04) mg/dL Estimated GFR 51.0 L (>60) mL/min BUN/Creatinine Ratio 24.8 H (6-22) Glucose 208 H (80-110) mg/dL Hemoglobin A1c (4.0-6.0) % Lactate 1.0 (0.7-2.1) mmol/L Calcium 8.6 (8.4-10.2) mg/dL Magnesium (1.6-2.3) mg/dL Total Bilirubin 1.1 (0.2-1.3) mg/dL AST 36 (14-36) IU/L ALT 28 (<35) IU/L Alkaline Phosphatase 96 (38-126) U/L Total Protein 7.2 (6.3-8.2) g/dL Albumin 3.5 (3.5-5.0) g/dL Globulin 3.7 (1.7-4.1) g/dL Albumin/Globulin Ratio 0.9 L (1.0-2.8) SARS-CoV-2 (PCR) (Negative) 11/25/20 11/25/20 11/25/20 Range/Units 19:40 19:40 20:35 WBC (4.5-11.0) X10^3/uL RBC (4.0-5.2) X10^6/uL Hgb (12.0-16.0) g/dL Hct (36-46) % MCV (80-100) fL MCH (26-34) PG MCHC (30-36) % RDW (11.6-14.8) % Plt Count (150-400) X10^3/uL Neut % (Auto) (50-75) % Lymph % (Auto) (25-40) % Reynolds % (Auto) (3-14) % Eos % (Auto) (2-4) % Baso % (Auto) (0-2) % Neut # (Auto) (9067-3509) /uL Lymph # (Auto) (5066-4990) /uL Reynolds # (Auto) (0-900) /uL Eos # (Auto) (0-450) /uL Baso # (Auto) (0-100) /uL Sodium (137-145) mmol/L Potassium (3.4-5.1) mmol/L Chloride (98-107) mmol/L Carbon Dioxide (22-32) mmol/L BUN (7-17) mg/dL Creatinine (0.52-1.04) mg/dL Estimated GFR (>60) mL/min BUN/Creatinine Ratio (6-22) Glucose (80-110) mg/dL Hemoglobin A1c 5.6 (4.0-6.0) % Lactate (0.7-2.1) mmol/L Calcium (8.4-10.2) mg/dL Magnesium 2.4 H (1.6-2.3) mg/dL Total Bilirubin (0.2-1.3) mg/dL AST (14-36) IU/L ALT (<35) IU/L Alkaline Phosphatase (38-126) U/L Total Protein (6.3-8.2) g/dL Albumin (3.5-5.0) g/dL Globulin (1.7-4.1) g/dL Albumin/Globulin Ratio (1.0-2.8) SARS-CoV-2 (PCR) Negative (Negative) MDM Narrative Medical decision making narrative: 60-year-old female with no significant past medical history, diagnosed yesterday with pyelonephritis in the ED, returns to the ED due to positive blood cultures from yesterday. Concern for bacteremia. Will order labs, repeat blood cultures. Will start IV ceftriaxone. Will admit. <Maxine Honeycutt MD - Last Filed: 11/26/20 04:40> Lab Data Labs: Lab Results 11/25/20 11/25/20 11/25/20 Range/Units 19:40 19:40 19:40 WBC 10.4 (4.5-11.0) X10^3/uL RBC 3.53 L (4.0-5.2) X10^6/uL Hgb 11.4 L (12.0-16.0) g/dL Hct 34.1 L (36-46) % MCV 96.7 (80-100) fL MCH 32.4 (26-34) PG MCHC 33.5 (30-36) % RDW 12.6 (11.6-14.8) % Plt Count 154 (150-400) X10^3/uL Neut % (Auto) 80.9 H (50-75) % Lymph % (Auto) 11.2 L (25-40) % Reynolds % (Auto) 7.7 (3-14) % Eos % (Auto) 0.0 L (2-4) % Baso % (Auto) 0.2 (0-2) % Neut # (Auto) 8400 H (3766-6956) /uL Lymph # (Auto) 1200 (7735-9702) /uL Reynolds # (Auto) 800 (0-900) /uL Eos # (Auto) 0 (0-450) /uL Baso # (Auto) 0 (0-100) /uL Sodium 134 L (137-145) mmol/L Potassium 4.0 (3.4-5.1) mmol/L Chloride 102 (98-107) mmol/L Carbon Dioxide 25 (22-32) mmol/L BUN 27 H (7-17) mg/dL Creatinine 1.09 H (0.52-1.04) mg/dL Estimated GFR 51.0 L (>60) mL/min BUN/Creatinine Ratio 24.8 H (6-22) Glucose 208 H (80-110) mg/dL Hemoglobin A1c (4.0-6.0) % Lactate 1.0 (0.7-2.1) mmol/L Calcium 8.6 (8.4-10.2) mg/dL Magnesium (1.6-2.3) mg/dL Total Bilirubin 1.1 (0.2-1.3) mg/dL AST 36 (14-36) IU/L ALT 28 (<35) IU/L Alkaline Phosphatase 96 (38-126) U/L Total Protein 7.2 (6.3-8.2) g/dL Albumin 3.5 (3.5-5.0) g/dL Globulin 3.7 (1.7-4.1) g/dL Albumin/Globulin Ratio 0.9 L (1.0-2.8) SARS-CoV-2 (PCR) (Negative) 11/25/20 11/25/20 11/25/20 Range/Units 19:40 19:40 20:35 WBC (4.5-11.0) X10^3/uL RBC (4.0-5.2) X10^6/uL Hgb (12.0-16.0) g/dL Hct (36-46) % MCV (80-100) fL MCH (26-34) PG MCHC (30-36) % RDW (11.6-14.8) % Plt Count (150-400) X10^3/uL Neut % (Auto) (50-75) % Lymph % (Auto) (25-40) % Reynolds % (Auto) (3-14) % Eos % (Auto) (2-4) % Baso % (Auto) (0-2) % Neut # (Auto) (8193-9011) /uL Lymph # (Auto) (5264-6094) /uL Reynolds # (Auto) (0-900) /uL Eos # (Auto) (0-450) /uL Baso # (Auto) (0-100) /uL Sodium (137-145) mmol/L Potassium (3.4-5.1) mmol/L Chloride (98-107) mmol/L Carbon Dioxide (22-32) mmol/L BUN (7-17) mg/dL Creatinine (0.52-1.04) mg/dL Estimated GFR (>60) mL/min BUN/Creatinine Ratio (6-22) Glucose (80-110) mg/dL Hemoglobin A1c 5.6 (4.0-6.0) % Lactate (0.7-2.1) mmol/L Calcium (8.4-10.2) mg/dL Magnesium 2.4 H (1.6-2.3) mg/dL Total Bilirubin (0.2-1.3) mg/dL AST (14-36) IU/L ALT (<35) IU/L Alkaline Phosphatase (38-126) U/L Total Protein (6.3-8.2) g/dL Albumin (3.5-5.0) g/dL Globulin (1.7-4.1) g/dL Albumin/Globulin Ratio (1.0-2.8) SARS-CoV-2 (PCR) Negative (Negative) MDM Narrative Medical decision making narrative: 60-year-old female with no significant past medical history, diagnosed yesterday with pyelonephritis in the ED, returns to the ED due to positive blood cultures from yesterday. Concern for bacteremia. Will order labs, repeat blood cultures. IV ceftriaxone is initiated and will plan for admission given her positive blood cultures in less than 24 hours and noted urinary tract infection with pyelonephritis diagnosed yesterday by CT scan. She is amenable to plan. At this time there does not appear to be an alternate source to explain the blood cultures. She is safe for transfer to the floor Discharge Plan Departure Patient Disposition: Admitted as Observation Clinical Impression: Pyelonephritis, Blood bacterial culture positive Admit Date/Time: 11/25/20 21:22 Admit Provider: Soocrro Alicea
[2020-11-25] MEDS: SODIUM CHLORIDE 0.9% 1,000 ML 1000 ML IV (20:56)
[2020-11-25] MEDS: cefTRIAXone 2,000 MG in SODIUM CHLORIDE 0.9% 100 ML 200 ML IV (20:57)
[2020-11-25 21:45] VITALS: BP 120/57; PULSE 67; RESP 16
[2020-11-25 21:55] LABS: COVID19 - ADMIT (NP swab/PCR) Negative (Negative)
[2020-11-25 22:00] VITALS: BP 116/62; PULSE 68; RESP 18; TEMP 36.1; O2SAT 99
[2020-11-25] MEDS: LACTATED RINGERS 1,000 ML 60 ML IV (22:10)
[2020-11-25 22:13] VITALS: BMI 18.8
[2020-11-25 22:13] LABS: Magnesium 2.4 mg/dL (1.6-2.3)
[2020-11-25] MEDS: ONDANSETRON 4 MG ODT PO (22:57)
[2020-11-25] MEDS: ACETAMINOPHEN 325 MG TABLET 650 MG PO (22:57)
--- NOTE | 2020-11-25 23:05 | PC.NURSE ---
Addendum entered by Regine Julian R.N. 11/25/20 23:43: Pt's money/credit cards and home meds were sent home with pt's spouse. Original Note: Pt to room 221 from [facility]. accompanied by spouse, Bandar. Pt admits to nausea and right lower abdominal/flank pain 09/05. Pt has been up ad barrett in room to bathroom and changing clothes into own pajamas. Administered tylenol for pain and will monitor. Pt requests soup and crackers and this was given after blood glucose checked for 166. Pt was instructed not to attempt out of bed without calling for assistance and pt verbalizes agreement and understanding. IV fluids infusing as per emar.
--- NOTE | 2020-11-25 23:07 | PM.HP.1 ---
History of Present Illness History of Present Illness Date Patient Seen: 11/25/20 Time Patient Seen: 21:51 Chief complaint: Kidney/Bladder Infection, Blood Infection Narrative: Ruth Greene is a 60-year-old female with no reported past medical history and takes no medications, diagnosed yesterday with pyelonephritis in the ED, returns to the ED due to positive blood cultures from yesterday. Patient was seen in our ED yesterday, diagnosed with pyelonephritis, discharged home with cefpodoxime. Her blood cultures and urine were positive for E coli, notified by the ED to return for further treatment. In the ED, patient denies fever, chills, chest pain, nausea, vomiting, shortness of breath, nausea, vomiting, abdominal pain, flank pain, lightheadedness, dizziness, syncope, dysuria. Patient reports that she feels better since starting the cefpododixime yesterday. Patient denies history of UTIs /stones in the past, denies any recent injury illness, trauma or precipitating factor or event. Upon admit patient has continued right-sided abdominal pain 5/10 dull a comes and goes, medications help it nothing seems to improve it patient states she has not had a bowel movement in 3 days but she has had decreased intake and appetite denies fever, hematemesis, melena or hematuria. Patient's vitals upon admit are stable at a temp of 97.7?, BP 120/61, HR 74, R 16, O2 saturation 97% on room air. Patient does not demonstrate a white count at this time neutrophils# a 1400, HGB 11.4, HCT 34.1. Patient does demonstrate DANA sodium 134, BUN 27, creatinine 1.09, glucose 208, GFR 5. Patient has a sofa score: 0, patient had 2 positive bottles of blood cultures for E coli Gram-negative bacilli. Patient admitted for pyelonephritis, DANA without sepsis. Patient History Medical History (Updated 11/25/20 @ 22:37 by Maxine Honeycutt MD) Healthy adult Surgical History (Updated 11/26/20 @ 02:59 by MANOJ Pastrana) No history of previous surgery Family & Social History Family History (Updated 11/26/20 @ 03:00 by MANOJ Pastrana) Mother Cancer Father Stroke Social History: household members spouse Prior Living Arrangements House Safety & Behavioral: Feels Safe in Current Yes Environment Been Physically Hurt or No Threatened By a Person Suicidal Ideation Description None Suicide Plan Description No Plan Tobacco & Substance use: Tobacco type cigarettes Smoking Status Current every day smoker Smoking packs per day 0.25 alcohol intake current alcohol intake frequency holiday/special occasion Substance Use Type does not use Meds Home Medications and Allergies Home Medications Medication Instructions Recorded Confirmed Type hydrocodone 5 mg-acetaminophen 325 1 tab PO Q4-6H PRN #10 tab 11/24/20 11/25/20 Rx mg tablet ketorolac 10 mg tablet 10 mg PO Q6H PRN #14 tab 11/24/20 11/25/20 Rx ondansetron 4 mg disintegrating 4 mg PO TID-QID PRN #10 tab 11/24/20 11/25/20 Rx tablet Allergies Allergy/AdvReac Type Severity Reaction Status Date / Time Sulfa (Sulfonamide Allergy Hives Verified 11/24/20 20:17 Antibiotics) Review of Systems Review of Systems Narrative: All 12 point systems reviewed with the patient and are negative except otherwise documented. Exam Vital Signs (past 8 hours): - 11/25/20 19:12 11/25/20 21:45 11/25/20 22:00 Temperature 97.7 F 97 F L Pulse Rate 74 67 68 Respiratory Rate 16 16 18 Blood Pressure 120/61 120/57 L 116/62 Pulse Oximetry 97 99 Oxygen Delivery Method Room Air Narrative Exam Narrative: General: Patient is a well-developed, well-nourished female in no distress at this time. HEENT: Normocephalic, atraumatic, extraocular muscles intact, oral pharynx is clear and mucous membranes are moist. Neck is supple and symmetric, trachea is midline, no adenopathy, no thyroid enlargement, nontender, no masses palpated. Negative for JVD Chest: Normal AP diameter and contour without kyphoscoliosis, no nasal flaring, retractions, or tachypneic labored Lungs: Auscultation of all lung luna are clear without adventitious sounds, wheezes, rhonchi, or rales. Cardio: S1 & S2 with regular rate and rhythm without murmur, rubs, or gallops, no carotid bruit, no cardiac pulsations present. Abdomen: Soft tender to the mid & lower right abd, negative for organomegaly, or masses. Bowel sounds are present in all 4 quadrants without guarding or rebound, Positive bilateral CVA tenderness. Musculoskeletal: Muscle strength and tone are equal within normal limits, no deformity, crepitus, effusions, cyanosis, clubbing or edema present. Full range of motion intact radial and pedal pulses are normal. Skin: Warm dry and intact without rashes, ulcerations or petechiae. Neuro: Alert and orientated x3, strength is +5/5 in all extremities, sensation to touch intact, no gross deficits noted of cranial nerves. Psych: Patient has a well-kept appearance, appropriate affect, mental status attitude thought context and judgment are appropriate for age. Objective Labs Result Diagrams: 11/25/20 19:40 11/25/20 19:40 Labs: Laboratory Results - last 24 hr 11/25/20 11/25/20 11/25/20 19:40 19:40 19:40 WBC 10.4 RBC 3.53 L Hgb 11.4 L Hct 34.1 L MCV 96.7 MCH 32.4 MCHC 33.5 RDW 12.6 Plt Count 154 Neut % (Auto) 80.9 H Lymph % (Auto) 11.2 L [place] % (Auto) 7.7 Eos % (Auto) 0.0 L Baso % (Auto) 0.2 Neut # (Auto) 8400 H Lymph # (Auto) 1200 [place] # (Auto) 800 Eos # (Auto) 0 Baso # (Auto) 0 Sodium 134 L Potassium 4.0 Chloride 102 Carbon Dioxide 25 BUN 27 H Creatinine 1.09 H Estimated GFR 51.0 L BUN/Creatinine Ratio 24.8 H Glucose 208 H Lactate 1.0 Calcium 8.6 Magnesium Total Bilirubin 1.1 AST 36 ALT 28 Alkaline Phosphatase 96 Total Protein 7.2 Albumin 3.5 Globulin 3.7 Albumin/Globulin Ratio 0.9 L SARS-CoV-2 (PCR) 11/25/20 11/25/20 19:40 20:35 WBC RBC Hgb Hct MCV MCH MCHC RDW Plt Count Neut % (Auto) Lymph % (Auto) [place] % (Auto) Eos % (Auto) Baso % (Auto) Neut # (Auto) Lymph # (Auto) [place] # (Auto) Eos # (Auto) Baso # (Auto) Sodium Potassium Chloride Carbon Dioxide BUN Creatinine Estimated GFR BUN/Creatinine Ratio Glucose Lactate Calcium Magnesium 2.4 H Total Bilirubin AST ALT Alkaline Phosphatase Total Protein Albumin Globulin Albumin/Globulin Ratio SARS-CoV-2 (PCR) Negative Assessment & Plan Assessment & Plan narrative: Patient is Ruth Greene a 60-year-old female no reported medical history, takes no medications, and has never had surgery. Patient was requested to return to [facility] to be admitted for pyelonephritis, DANA without sepsis due to positive blood cultures for E coli/Gram-negative bacilli. 1. Pyelonephritis, resulting in secondary DANA, without sepsis due to E coli as evidence by positive blood cultures x2, acute, present on admission -uncomplicated, condition stable Patient does not demonstrate a white count at this time neutrophils# a 1400, HGB 11.4, HCT 34.1. sodium 134, BUN 27, creatinine 1.09, glucose 208, GFR 5. -sofa score:0, 2 positive bottles of blood cultures for E coli Gram-negative bacilli. -vital signs q.4 hours, intake and output monitored Q shift,weight measure daily, diet:Clear liquids patient may advance as tolerated to regular -IV fluid: LR@60cc/HR, gentle rehydration- reassess in am and determine to increase fluids or restriction depending on volume status.92%-O2 saturation -check orthostatics QAM, activity as tolerated, call for urinary output less than 200 mL per 8Hr/shift, temp >38.5, systolic <100 or Heart rate >110 or an SaO2 less than 92%, -labs ordered: AM BNP, lactate, CBC -will continue Rocephin 1 g Q 24 hours, if patient not improving in 48-72 hours will consider further evalution -prevention vaccine: Recommend verification patient has received yearly flu vaccine, shingles, pneumonia 2. Tobacco abuse, acute on chronic, present on admission -patient indication regarding tobacco cessation 3. Underweight as evidence by BMI of 18.9, chronic, present on admission -consideration will be given to dietary evaluation for recommendations regarding nutritional supplementation. Code status: Full code Surrogate decision maker: spouse Bandar Greene COVID PCR: Negative COVID vaccination: Pfizer July of 2020 DVT/VTE prophylaxis: Enoxaparin 40 mg, and SCDs Disposition: Estimated length of stay less than 2 midnights, patient requires hydration and IV antibiotics. I have utilized all available immediate resources to obtain, update, or review the patient's current medications. I confirmed that the patient's advanced care plan is present, Code status is documented and/or surrogate decision maker is listed in the patient's medical record. Quality VTE Deep Vein Thrombosis/Pulmonary Embolism Present on Admission: No
[2020-11-25 23:36] VITALS: BP 102/53; PULSE 70; RESP 18; TEMP 36.3; O2SAT 98
[2020-11-26] VITALS (15 sets, daily range): BP systolic 116–120; BP diastolic 54–65; PULSE 68–85; RESP 16–18; TEMP 36.1–36.8; O2SAT 96–100
[2020-11-26 00:09] LABS: Hemoglobin A1C% w Est Avg Glu 5.6 % (4.0-6.0)
[2020-11-26] MEDS: KETOROLAC 30 MG/ML VIAL IV ×2 (04:09→09:43)
--- NOTE | 2020-11-26 04:15 | PC.NURSE ---
This RN called provider REBECCA Alicea, to verify LR 500 mL Bolus for decreasing BP at 0315. This RN repeated BP at 0320 and patients BP was 116/56. Provider notified of BP and telephone order was given to not give the bolus due to BP WNL. Patient used call light at 0325 for assistance to the BR, while this RN was in the room patient was requesting pain medication. Provider REBECCA Alicea was notified at 0340 of request for pain medication. Telephone orders were given for Ketorolac 30 mg IV q6hr. Verbal read back and verification done. No other orders at this time.
[2020-11-26 06:13] LABS: Add Manual Diff / Slide Review NO; Basophils Absolute Auto 0 /uL (0-100); Basophils Percent Auto 0.3 % (0-2); Eosinophils Absolute Auto 0 /uL (0-450); Eosinophils Percent Auto 0.2 % (2-4); Hematocrit 30.4 % (36-46); Hemoglobin 10.2 g/dL (12.0-16.0); Lymphocytes Absolute Auto 1200 /uL (1100-4500); Lymphocytes Percent Auto 12.5 % (25-40); Mean Corpuscular HGB Conc 33.7 % (30-36); Mean Corpuscular Hemoglobin 32.3 PG (26-34); Mean Corpuscular Volume 95.7 fL (80-100); Monocytes Absolute Auto 1000 /uL (0-900); Monocytes Percent Auto 10.1 % (3-14); Neutrophils Absolute Auto 7700 /uL (1500-7000); Neutrophils Percent Auto 76.9 % (50-75); Platelet Count 139 X10^3/uL (150-400); Red Blood Cell Count 3.17 X10^6/uL (4.0-5.2); Red Cell Distribution Width 12.8 % (11.6-14.8)
[2020-11-26 06:15] LABS: Blood Urea Nitrogen 24 mg/dL (7-17); Carbon Dioxide 24 mmol/L (22-32); Chloride 103 mmol/L (98-107); Estimated Glomerular Filt Rate > 60.0 mL/min (>60); Glucose 107 mg/dL (80-110); HEMOLYSIS < 15 (0-50); Lactate (Lactic Acid) 0.8 mmol/L (0.7-2.1); Potassium 3.6 mmol/L (3.4-5.1); Sodium 132 mmol/L (137-145)
[2020-11-26] MEDS: ENOXAPARIN 40 MG/0.4 ML SYRINGE SUBCUT (08:55)
--- NOTE | 2020-11-26 11:51 | CM.DANOTE ---
DC assessment Plan: Patient is a 60 yr old female who admitted through the ED. CM met with patient at the bed side and explained role, Patient stated understanding. patient was alert and oriented x4 at time of CM meeting. Patient currently lives in a single level home with her spouse Bandar. patient is independent at baseline and and drives independently. Currently does not use DME I: Prime Plan: DC home with bandar patient currently does not have any DC plannning needs but CM will follow to assist with any DC planning needs that may arise. Montse Marino RN Discharge Planning/Care Management CM Discharge Assessment Start: 11/26/20 11:49 Freq: Status: Active Protocol: Document 11/26/20 11:49 HS (Rec: 11/26/20 11:51 HS [id number]) Discharge Planning Assessment Assigned Remedial Teacher Montse Marino RN DPOA/Assigned Designee Name Bandar Reyes () Contact Information [phone] Advance Directives? No History Provided By Patient,Medical Record Has Patient been admitted in last 30 No days? Prior Living Arrangements House Household Members spouse Type of transporation used prior to Drives own vehicle admit Independent with ADL's Yes Is patient alert and oriented? Yes Caregiver for Another No Barriers to Discharge No Discharge Plan Home Referrals Initiated None needed Whiteboard Updated in Patient Room with Yes name and ext. # of Remedial Teacher Review Status In Process Next Review Type Continued Stay Review
--- NOTE | 2020-11-26 13:31 | DIET.CONS ---
Dietary Consultation Note Admission Date: 11/25/2020 21:22 Assessment: 60y F admitted for pyelonephritis referred to nutrition for poor appetite. Pts poor appetite secondary to abd discomfort, pt is weight stable x2y though BMI is low for age. Pt consumed 100% POs at lunch today. Ht: 162.56 cm Wt: 49.895 kg BMI: 18.8 UBW: 50kg x2y Last BM: 11/22/20 (11/25/20 22:13) MNA: 8 Walter Score: 22 Diet: 11/25/20 Breakfast General (Regular) Diet Diet Modifications: Percent of last meal consumed (last 48h) Percent Meal Consumed 100% 11/26/20 07:00 Labs: RBC 3.17 X10^6/uL (4.0-5.2) L 11/26/20 05:20 Hgb 10.2 g/dL (12.0-16.0) L 11/26/20 05:20 Hct 30.4 % (36-46) L 11/26/20 05:20 Creatinine 0.89 mg/dL (0.52-1.04) 11/26/20 05:20 Hemoglobin A1c 5.6 % (4.0-6.0) 11/25/20 19:40 Lactate 0.8 mmol/L (0.7-2.1) 11/26/20 05:20 Interventions: 1. Recc initiating ONS Ensure Enlive if POs <75%. Monitoring/Evaluations: POs
--- NOTE | 2020-11-26 18:27 | PM.PN.1 ---
Subjective Subjective Interval history: 60-year-old female admitted to the hospital for E coli bacteremia. The patient was evaluated in the emergency room. In found to have E coli pyelonephritis. Blood cultures became positive. The patient was instructed to return to the emergency room for inpatient admission. Patient does report continued right flank pain. She has had no nausea vomiting. She has tolerated her diet well. Overall she feels like she is improving. Exam Vital Signs (past 8 hours): - 11/26/20 10:46 11/26/20 11:47 11/26/20 12:22 Temperature 97.3 F L Pulse Rate 68 Respiratory Rate 16 Blood Pressure 116/61 Pulse Oximetry 96 96 98 11/26/20 13:20 11/26/20 14:57 11/26/20 15:35 Temperature 96.9 F L Pulse Rate 78 Respiratory Rate 18 Blood Pressure 118/65 Pulse Oximetry 96 100 100 11/26/20 17:00 Temperature Pulse Rate Respiratory Rate Blood Pressure Pulse Oximetry 100 Oxygen Delivery Method Room Air Oxygen Flow Rate 0 Narrative Exam Narrative: Pleasant female in no obvious distress Resp Other: Lungs: Clear to auscultation Cardio Other: Cardiac exam: Regular rate and rhythm normal S1-S2 GI Other: Abdomen: Soft nontender nondistended Back/Spine/Pelvis Other: Right flank colon, tender to palpation Extrem Other: Extremities: No edema Objective Labs Result Diagrams: 11/26/20 05:20 11/26/20 05:20 Labs: Laboratory Results - last 24 hr 11/25/20 11/25/20 11/25/20 19:40 19:40 19:40 WBC 10.4 RBC 3.53 L Hgb 11.4 L Hct 34.1 L MCV 96.7 MCH 32.4 MCHC 33.5 RDW 12.6 Plt Count 154 Neut % (Auto) 80.9 H Lymph % (Auto) 11.2 L [place] % (Auto) 7.7 Eos % (Auto) 0.0 L Baso % (Auto) 0.2 Neut # (Auto) 8400 H Lymph # (Auto) 1200 [place] # (Auto) 800 Eos # (Auto) 0 Baso # (Auto) 0 Sodium 134 L Potassium 4.0 Chloride 102 Carbon Dioxide 25 BUN 27 H Creatinine 1.09 H Estimated GFR 51.0 L BUN/Creatinine Ratio 24.8 H Glucose 208 H Hemoglobin A1c Lactate 1.0 Calcium 8.6 Magnesium Total Bilirubin 1.1 AST 36 ALT 28 Alkaline Phosphatase 96 Total Protein 7.2 Albumin 3.5 Globulin 3.7 Albumin/Globulin Ratio 0.9 L SARS-CoV-2 (PCR) 11/25/20 11/25/20 11/25/20 19:40 19:40 20:35 WBC RBC Hgb Hct MCV MCH MCHC RDW Plt Count Neut % (Auto) Lymph % (Auto) [place] % (Auto) Eos % (Auto) Baso % (Auto) Neut # (Auto) Lymph # (Auto) [place] # (Auto) Eos # (Auto) Baso # (Auto) Sodium Potassium Chloride Carbon Dioxide BUN Creatinine Estimated GFR BUN/Creatinine Ratio Glucose Hemoglobin A1c 5.6 Lactate Calcium Magnesium 2.4 H Total Bilirubin AST ALT Alkaline Phosphatase Total Protein Albumin Globulin Albumin/Globulin Ratio SARS-CoV-2 (PCR) Negative 11/26/20 11/26/20 11/26/20 05:20 05:20 05:20 WBC 10.0 RBC 3.17 L Hgb 10.2 L Hct 30.4 L MCV 95.7 MCH 32.3 MCHC 33.7 RDW 12.8 Plt Count 139 L Neut % (Auto) 76.9 H Lymph % (Auto) 12.5 L [place] % (Auto) 10.1 Eos % (Auto) 0.2 L Baso % (Auto) 0.3 Neut # (Auto) 7700 H Lymph # (Auto) 1200 [place] # (Auto) 1000 H Eos # (Auto) 0 Baso # (Auto) 0 Sodium 132 L Potassium 3.6 Chloride 103 Carbon Dioxide 24 BUN 24 H Creatinine 0.89 Estimated GFR > 60.0 BUN/Creatinine Ratio 27.0 H Glucose 107 D Hemoglobin A1c Lactate 0.8 Calcium 8.0 L Magnesium Total Bilirubin AST ALT Alkaline Phosphatase Total Protein Albumin Globulin Albumin/Globulin Ratio SARS-CoV-2 (PCR) [facility] Medical History (Updated 11/25/20 @ 22:37 by Maxine Honeycutt MD) Healthy adult Surgical History (Updated 11/26/20 @ 02:59 by MANJO Pastrana) No history of previous surgery Family History (Updated 11/26/20 @ 03:00 by MANOJ Pastrana) Mother Cancer Father Stroke Social History household members: spouse Smoking Status: Current every day smoker alcohol intake: current Assessment & Plan Assessment & Plan narrative: Pyelonephritis, resulting in secondary DANA, without sepsis due to E coli as evidence by positive blood cultures x2, acute, present on admission -uncomplicated, condition stable Patient does not demonstrate a white count at this time neutrophils# a 1400, HGB 11.4, HCT 34.1. sodium 134, BUN 27, creatinine 1.09, glucose 208, GFR 5. -sofa score:0, 2 positive bottles of blood cultures for E coli Gram-negative bacilli. -vital signs q.4 hours, intake and output monitored Q shift,weight measure daily, diet:Clear liquids patient may advance as tolerated to regular -IV fluid: LR@60cc/HR, gentle rehydration- reassess in am and determine to increase fluids or restriction depending on volume status.92%-O2 saturation -check orthostatics QAM, activity as tolerated, call for urinary output less than 200 mL per 8Hr/shift, temp >38.5, systolic <100 or Heart rate >110 or an SaO2 less than 92%, -labs ordered: AM BNP, lactate, CBC -will continue Rocephin 1 g Q 24 hours, if patient not improving in 48-72 hours will consider further evalution -prevention vaccine: Recommend verification patient has received yearly flu vaccine, shingles, pneumonia -patient remains afebrile, continue IV antibiotics anticipate discharge home if the patient is able to take oral antibiotics 2. Tobacco abuse, acute on chronic, present on admission -patient indication regarding tobacco cessation 3. Underweight as evidence by BMI of 18.9, chronic, present on admission -consideration will be given to dietary evaluation for recommendations regarding nutritional supplementation. Quality VTE Deep Vein Thrombosis/Pulmonary Embolism Present on Admission: No
[2020-11-26] MEDS: SODIUM CHLORIDE 0.9% 250 ML 21 ML IV (18:44)
[2020-11-26] MEDS: cefTRIAXone 2,000 MG in SODIUM CHLORIDE 0.9% 100 ML 200 ML IV (18:44)
[2020-11-27] VITALS (14 sets, daily range): BP systolic 113–142; BP diastolic 59–84; PULSE 72–87; RESP 16–18; TEMP 36.4–36.9; O2SAT 92–100
--- NOTE | 2020-11-27 03:53 | PC.NURSE ---
Patient had 325cc of clear yellow urine in the toilet that was undocumented from evening shift. This RN asked the patient when she had voided and patient stated it was at 2230. Documented under that time.
[2020-11-27 04:44] LABS: Add Manual Diff / Slide Review NO; Basophils Absolute Auto 300 /uL (0-100); Basophils Percent Auto 3.7 % (0-2); Eosinophils Absolute Auto 100 /uL (0-450); Eosinophils Percent Auto 1.4 % (2-4); Hemoglobin 10.6 g/dL (12.0-16.0); Lymphocytes Absolute Auto 900 /uL (1100-4500); Lymphocytes Percent Auto 13.3 % (25-40); Mean Corpuscular HGB Conc 33.2 % (30-36); Mean Corpuscular Hemoglobin 31.8 PG (26-34); Mean Corpuscular Volume 95.9 fL (80-100); Monocytes Absolute Auto 600 /uL (0-900); Monocytes Percent Auto 7.8 % (3-14); Neutrophils Absolute Auto 5300 /uL (1500-7000); Neutrophils Percent Auto 73.8 % (50-75); Platelet Count 187 X10^3/uL (150-400); Red Blood Cell Count 3.33 X10^6/uL (4.0-5.2); Red Cell Distribution Width 12.8 % (11.6-14.8); White Blood Cell Count 7.1 X10^3/uL (4.5-11.0)
[2020-11-27 06:32] LABS: BUN Creatinine Ratio 27.2 (6-22); Blood Urea Nitrogen 43 mg/dL (7-17); Calcium 8.1 mg/dL (8.4-10.2); Carbon Dioxide 29 mmol/L (22-32); Chloride 105 mmol/L (98-107); Estimated Glomerular Filt Rate 33.2 mL/min (>60); Glucose 97 mg/dL (80-110); HEMOLYSIS 27 (0-50); Potassium 3.9 mmol/L (3.4-5.1); Sodium 138 mmol/L (137-145)
--- NOTE | 2020-11-27 08:04 | P.DS_ITS ---
History of Present Illness History of Present Illness Chief complaint: Kidney/Bladder Infection, Blood Infection Narrative: Ruth Gerene is a 60-year-old female with no reported past medical history and takes no medications, diagnosed yesterday with pyelonephritis in the ED, returns to the ED due to positive blood cultures from yesterday.? Patient was seen in our ED yesterday, diagnosed with pyelonephritis, discharged home with cefpodoxime.? Her blood cultures and urine were positive for E coli, notified by the ED to return for further treatment.? In the ED, patient denies fever, chills, chest pain, nausea, vomiting, shortness of breath, nausea, vomiting, abdominal pain, flank pain, lightheadedness, dizziness, syncope, dysuria.? Patient reports that she feels better since starting the cefpododixime yesterday.? Patient denies history of UTIs /stones in the past, denies any recent injury illness, trauma or precipitating factor or event.? Upon admit patient has continued right-sided abdominal pain 5/10 dull a comes and goes, medications help it nothing seems to improve it patient states she has not had a bowel movement in 3 days but she has had decreased intake and appetite denies fever, hematemesis, melena or hematuria. Patient's vitals upon admit are stable at a temp of 97.7?, BP 120/61, HR 74, R 16, O2 saturation 97% on room air.? Patient does not demonstrate a white count at this time neutrophils# a 1400, HGB 11.4, HCT 34.1.? Patient does demonstrate DANA sodium 134, BUN 27, creatinine 1.09, glucose 208, GFR 5.? Patient has a sofa score:? 0, patient had 2 positive bottles of blood cultures for E coli Gram- negative bacilli.? Patient admitted for pyelonephritis, DANA without sepsis. 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 Pyelonephritis 2. E coli bacteremia Hospital Course: The patient is a 60-year-old female who presented to the ED for a UTI. She was diagnosed with pyelonephritis on November 26, 2020. The patient w as given appropriate antibiotics and discharged home. Blood cultures were obtained during her visit and ultimately became positive for E coli. Patient was contacted and instructed to return to the hospital for inpatient admission. She was placed on IV ceftriaxone. Her urine and blood cultures have grown pansensitive E coli. She has been afebrile since admission to the hospital. Overall she feels better. Her appetite is good. Her pain is well controlled. The patient is able to tolerate oral antibiotics. She will be switched to an oral antibiotics and plans are underway for discharge home. At this time she is sitting up without any acute distress deemed appropriate for discharge home. Exam Vital Signs (past 8 hours): - 11/27/20 01:00 11/27/20 02:00 11/27/20 05:00 Temperature 97.6 F Pulse Rate 75 Respiratory Rate 16 Blood Pressure 122/66 Pulse Oximetry 98 98 98 11/27/20 06:00 Temperature 97.8 F Pulse Rate 87 Respiratory Rate 16 Blood Pressure 113/59 L Pulse Oximetry 98 Oxygen Delivery Method Room Air Oxygen Flow Rate 0 Narrative Exam Narrative: Pleasant female in no acute distress Resp Other: Lungs clear to auscultation Cardio Other: Cardiac exam: Rate and rhythm normal S1-S2 GI Other: Abdomen: Soft nontender nondistended mild right CVA tenderness Extrem Other: Extremity no edema Objective Labs Result Diagrams: 11/27/20 04:25 11/27/20 04:25 Labs: Laboratory Results - last 24 hr 11/27/20 11/27/20 04:25 04:25 WBC 7.1 RBC 3.33 L Hgb 10.6 L Hct 32.0 L MCV 95.9 MCH 31.8 MCHC 33.2 RDW 12.8 Plt Count 187 Neut % (Auto) 73.8 Lymph % (Auto) 13.3 L [place] % (Auto) 7.8 Eos % (Auto) 1.4 L Baso % (Auto) 3.7 H Neut # (Auto) 5300 Lymph # (Auto) 900 L [place] # (Auto) 600 Eos # (Auto) 100 Baso # (Auto) 300 H Sodium 138 Potassium 3.9 Chloride 105 Carbon Dioxide 29 BUN 43 H Creatinine 1.58 H Estimated GFR 33.2 L BUN/Creatinine Ratio 27.2 H Glucose 97 Calcium 8.1 L PFSH Medical History (Updated 11/25/20 @ 22:37 by Maxine Honeycutt MD) Healthy adult Surgical History (Updated 11/26/20 @ 02:59 by Socorro Alicea [facility]) No history of previous surgery Family History (Updated 11/26/20 @ 03:00 by Socorro Alicea [facility]) Mother Cancer Father Stroke Social History household members: spouse Smoking Status: Current every day smoker alcohol intake: current Discharge Plan Discharge orders & Medications Prescriptions: No Action hydrocodone-acetaminophen 5-325 mg tablet 1 tab PO Q4-6H PRN (Reason: pain) Qty: 10 RF: 0 ketorolac 10 mg tablet 10 mg PO Q6H PRN (Reason: pain) Qty: 14 RF: 0 ondansetron 4 mg tablet,disintegrating 4 mg PO TID-QID PRN (Reason: nausea and vomiting) Qty: 10 RF: 0 Quality VTE Deep Vein Thrombosis/Pulmonary Embolism Present on Admission: No
--- NOTE | 2020-11-27 08:15 | DI.US.S_ITS ---
PROCEDURE: US RENAL COMPLETE INDICATIONS: ACUTE RENAL FAILURE TECHNIQUE: Real-time scanning was performed of the kidneys and bladder, with image documentation. COMPARISON: None. FINDINGS: Kidneys: Kidneys are normal in size. Right kidney measures 11.1 cm long; left kidney measures 10.9 cm long. Right renal cortical thickness is 1.9 cm; left renal cortical thickness is 2.0 cm. Renal cortical echotexture is normal. No hydronephrosis or nephrolithiasis. No suspicious solid mass lesions. Bladder: The bladder is nondistended on prevoid images, which compromises evaluation. Miscellaneous: No free pelvic fluid. IMPRESSION: No hydronephrosis or nephrolithiasis. Dictated by: Hardik Handy M.D. on 11/27/2020 at 9:43 Approved by: Hardik Handy M.D. on 11/27/2020 at 9:45
--- NOTE | 2020-11-27 08:41 | P.PN_ITS ---
Subjective Subjective Interval history: The patient is a 60-year-old female who was admitted to the hospital for E coli bacteremia in the setting of acute pyelonephritis. Patient reports her right flank pain has improved. She describes it as 3/10. The patient is tolerating oral intake well. She has been afebrile for the past 48 hours. However her renal function has increased significantly over the past 24 hours. Exam Vital Signs (past 8 hours): - 11/27/20 01:00 11/27/20 02:00 11/27/20 05:00 Temperature 97.6 F Pulse Rate 75 Respiratory Rate 16 Blood Pressure 122/66 Pulse Oximetry 98 98 98 11/27/20 06:00 Temperature 97.8 F Pulse Rate 87 Respiratory Rate 16 Blood Pressure 113/59 L Pulse Oximetry 98 Oxygen Delivery Method Room Air Oxygen Flow Rate 0 Narrative Exam Narrative: Pleasant female resting comfortably in no obvious distress Resp Other: Lungs: Clear to auscultation Cardio Other: Cardiac exam: Regular rate and rhythm normal S1-S2 GI Other: Abdomen: Soft and nontender, minimal right flank pain Extrem Other: Extremities: No edema Objective Labs Result Diagrams: 11/27/20 04:25 11/27/20 04:25 Labs: Laboratory Results - last 24 hr 11/27/20 11/27/20 04:25 04:25 WBC 7.1 RBC 3.33 L Hgb 10.6 L Hct 32.0 L MCV 95.9 MCH 31.8 MCHC 33.2 RDW 12.8 Plt Count 187 Neut % (Auto) 73.8 Lymph % (Auto) 13.3 L [place] % (Auto) 7.8 Eos % (Auto) 1.4 L Baso % (Auto) 3.7 H Neut # (Auto) 5300 Lymph # (Auto) 900 L [place] # (Auto) 600 Eos # (Auto) 100 Baso # (Auto) 300 H Sodium 138 Potassium 3.9 Chloride 105 Carbon Dioxide 29 BUN 43 H Creatinine 1.58 H Estimated GFR 33.2 L BUN/Creatinine Ratio 27.2 H Glucose 97 Calcium 8.1 L PFSH Medical History (Updated 11/25/20 @ 22:37 by Maxine Honeycutt MD) Healthy adult Surgical History (Updated 11/26/20 @ 02:59 by MIGUEL ÁNGEL Pastrana) No history of previous surgery Family History (Updated 11/26/20 @ 03:[address] [facility]) Mother Cancer Father Stroke Social History household members: spouse Smoking Status: Current every day smoker alcohol intake: current Assessment & Plan Assessment & Plan narrative: Impression 1. Acute pyelonephritis -patient with pansensitive E coli in the urine, and blood -patient treated with IV ceftriaxone with improvement of her fevers, and flank pain -she is tolerating oral intake, and will be switched to oral antibiotics 2. Acute renal failure -suspect ATN, related to contrast nephropathy -will obtain renal ultrasound to rule out obstruction -will start IV hydration -will repeat labs later today and tomorrow -will obtain urine eosinophils to rule out the possibility of acute interstitial nephritis related to antibiotic -will avoid nephrotoxic agent -patient was given ketorolac at discharge, from the emergency department, this may be contributing factor as well. Will continue to follow renal function Quality VTE Deep Vein Thrombosis/Pulmonary Embolism Present on Admission: No
[2020-11-27] MEDS: DEXTROSE 5%-LACTATED RINGERS 1,000 ML 150 ML IV ×2 (08:50→15:53)
[2020-11-27] MEDS: ENOXAPARIN 40 MG/0.4 ML SYRINGE SUBCUT (08:51)
[2020-11-27] MEDS: AMOXICILLIN/CLAV 875/125 MG 1 TAB PO ×2 (08:51→20:35)
--- NOTE | 2020-11-27 22:36 | PC.NURSE ---
Pt appeared to have uneventful evening. IVF infusing into the LAC as per orders. Independent in room. Call light w/in reach, bed alarm on for pt safety. Continue w/plan of care.
[2020-11-28] MEDS: DEXTROSE 5%-LACTATED RINGERS 1,000 ML 150 ML IV (01:55)
[2020-11-28 03:00] VITALS: O2SAT 94
--- NOTE | 2020-11-28 03:32 | PC.NURSE ---
Pt is A and O x 4, independent in room. Denies pain, stating it is much better now. She is able to eat and drink and sleep. UO is qs, clear and yellow. Pt is drinking lots of water and is desirous of discharge today.
[2020-11-28 03:35] VITALS: BP 138/73; PULSE 63; RESP 16; TEMP 36.7; O2SAT 97
[2020-11-28 05:14] LABS: Add Manual Diff / Slide Review NO; BUN Creatinine Ratio 11.6 (6-22); Basophils Absolute Auto 0 /uL (0-100); Basophils Percent Auto 0.3 % (0-2); Blood Urea Nitrogen 8 mg/dL (7-17); Calcium 8.4 mg/dL (8.4-10.2); Carbon Dioxide 28 mmol/L (22-32); Chloride 107 mmol/L (98-107); Eosinophils Absolute Auto 100 /uL (0-450); Eosinophils Percent Auto 0.9 % (2-4); Estimated Glomerular Filt Rate > 60.0 mL/min (>60); Glucose 117 mg/dL (80-110); HEMOLYSIS < 15 (0-50); Hematocrit 30.3 % (36-46); Hemoglobin 10.2 g/dL (12.0-16.0); Lymphocytes Absolute Auto 1700 /uL (1100-4500); Lymphocytes Percent Auto 29.2 % (25-40); Mean Corpuscular HGB Conc 33.8 % (30-36); Mean Corpuscular Hemoglobin 32.2 PG (26-34); Mean Corpuscular Volume 95.4 fL (80-100); Monocytes Absolute Auto 900 /uL (0-900); Monocytes Percent Auto 15.1 % (3-14); Neutrophils Absolute Auto 3200 /uL (1500-7000); Neutrophils Percent Auto 54.5 % (50-75); Platelet Count 229 X10^3/uL (150-400); Potassium 3.4 mmol/L (3.4-5.1); Red Blood Cell Count 3.17 X10^6/uL (4.0-5.2); Red Cell Distribution Width 12.8 % (11.6-14.8); Sodium 139 mmol/L (137-145); White Blood Cell Count 5.9 X10^3/uL (4.5-11.0)
[2020-11-28] MEDS: AMOXICILLIN/CLAV 875/125 MG 1 TAB PO (08:22)
[2020-11-28 09:06] VITALS: O2SAT 96
--- NOTE | 2020-11-28 09:06 | P.DS_ITS ---
History of Present Illness History of Present Illness Date Patient Seen: 11/28/20 Time Patient Seen: 09:06 Chief complaint: Kidney/Bladder Infection, Blood Infection Narrative: Per Socorro Alicea, DIVISION LEADER-: Ruth Greene is a 60-year-old female with no reported past medical history and takes no medications, diagnosed yesterday with pyelonephritis in the ED, returns to the ED due to positive blood cultures from yesterday.? Patient was seen in our ED yesterday, diagnosed with pyelonephritis, discharged home with cefpodoxime.? Her blood cultures and urine were positive for E coli, notified by the ED to return for further treatment.? In the ED, patient denies fever, chills, chest pain, nausea, vomiting, shortness of breath, nausea, vomiting, abd ominal pain, flank pain, lightheadedness, dizziness, syncope, dysuria.? Patient reports that she feels better since starting the cefpododixime yesterday.? Patient denies history of UTIs /stones in the past, denies any recent injury illness, trauma or precipitating factor or event.? Upon admit patient has continued right-sided abdominal pain 5/10 dull a comes and goes, medications help it nothing seems to improve it patient states she has not had a bowel movement in 3 days but she has had decreased intake and appetite denies fever, hematemesis, melena or hematuria. Patient's vitals upon admit are stable at a temp of 97.7?, BP 120/61, HR 74, R 16, O2 saturation 97% on room air.? Patient does not demonstrate a white count at this time neutrophils# a 1400, HGB 11.4, HCT 34.1.? Patient does demonstrate DANA sodium 134, BUN 27, creatinine 1.09, glucose 208, GFR 5.? Patient has a sofa score:? 0, patient had 2 positive bottles of blood cultures for E coli Gram- negative bacilli.? Patient admitted for pyelonephritis, DANA without sepsis. 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 Acute pyelonephritis with E. coli bacteremia 2. Acute renal failure suspect secondary to ATN or possible contrast nephropathy. Hospital Course: This is a 60-year-old female admitted with acute pyelonephritis and E coli bacteremia as well as acute renal failure secondary to possible ATN or contrast nephropathy. Her creatinine continued to improve with IV fluids and treatment of her bacteremia. On the day of discharge the patient was feeling well without much abdominal pain. Cultures grew an E coli sensitive to Augmentin and the patient will complete a total 7 day course of antibiotic thera py at home with oral Augmentin. Time Spent with Patient Time spent: Less than 30 minutes Exam Vital Signs (past 8 hours): - 11/28/20 03:00 11/28/20 03:35 Temperature 98.0 F Pulse Rate 63 Respiratory Rate 16 Blood Pressure 138/73 Pulse Oximetry 94 97 Oxygen Delivery Method Room Air Oxygen Flow Rate 0 Narrative Exam Narrative: Pleasant female resting comfortably in no obvious distress Resp Other:?Lungs:? Clear to auscultation Cardio Other:?Cardiac exam: Regular rate and rhythm normal S1-S2 GI Other:?Abdomen:? Soft and nontender, minimal right flank pain Extrem Other:?Extremities: No edema Objective Labs Result Diagrams: 11/28/20 04:25 11/28/20 04:25 Labs: Laboratory Results - last 24 hr 11/28/20 11/28/20 04:25 04:25 WBC 5.9 RBC 3.17 L Hgb 10.2 L Hct 30.3 L MCV 95.4 MCH 32.2 MCHC 33.8 RDW 12.8 Plt Count 229 Neut % (Auto) 54.5 Lymph % (Auto) 29.2 [place] % (Auto) 15.1 H Eos % (Auto) 0.9 L Baso % (Auto) 0.3 Neut # (Auto) 3200 Lymph # (Auto) 1700 [place] # (Auto) 900 Eos # (Auto) 100 Baso # (Auto) 0 Sodium 139 Potassium 3.4 Chloride 107 Carbon Dioxide 28 BUN 8 Creatinine 0.69 Estimated GFR > 60.0 BUN/Creatinine Ratio 11.6 Glucose 117 H Calcium 8.4 PFSH Medical History (Updated 11/25/20 @ 22:37 by Maxine Honeycutt MD) Healthy adult Surgical History (Updated 11/26/20 @ 02:59 by MANOJ Pastrana) No history of previous surgery Family History (Updated 11/26/20 @ 03:00 by MANOJ Pastrana) Mother Cancer Father Stroke Social History household members: spouse Smoking Status: Current every day smoker alcohol intake: current Discharge Plan Discharge Plan Patient Disposition: Home Provider Discharge Comment: You were admitted to the hospital with a urine infection which ultimately made it to your kidneys and blood stream. Treatment is with 1 week of antibiotics. You may return to work when pain is improved and you can tolerate it. Discharge orders & Medications Prescriptions: New amoxicillin-pot clavulanate [Augmentin] 875-125 mg Tablet 1 tab PO BID 7 Days Qty: 14 RF: 0 Continued hydrocodone-acetaminophen 5-325 mg tablet 1 tab PO Q4-6H PRN (Reason: pain) Qty: 10 RF: 0 ondansetron 4 mg tablet,disintegrating 4 mg PO TID-QID PRN (Reason: nausea and vomiting) Qty: 10 RF: 0 Discontinued ketorolac 10 mg tablet 10 mg PO Q6H PRN (Reason: pain) Qty: 14 RF: 0 Medication counseling provided by Pharmacist: No Discharge Health Status Multidrug resistant organism: No MDRO Diet/Activity/Treatments Diet: Diet as Tolerated Activity: As tolerated Visit Report/Discharge Packet Instructions: Urinary Tract Infection Quality VTE Deep Vein Thrombosis/Pulmonary Embolism Present on Admission: No MIPS - DC The patient has current or prior documentation of left ventricular ejection fraction (LVEF) less than 40%, or moderate or severely depressed left ventricular systolic function.: No
[2020-11-28 09:20] VITALS: BP 150/71; PULSE 76; RESP 16; TEMP 36.6; O2SAT 95
--- NOTE | 2020-11-28 11:33 | PC.NURSE ---
Patient ready for discharge. Iv removed. Patient asked for d/c instructions to be given when arrived to the floor for transport to home. Pt was taken down via WC before discharge instructions could be given. Called patient's home and completed discharge education over the phone. Discussed mediation, narcotic use, uti prevention, follow up, and abx. Pt denies any questions at this time. Pt gives permission to 2 RNs to sign d/c on her behalf.
--- NOTE | 2020-11-28 15:54 | CM.DPNOTE ---
DC Note DC today, home w/spouse. 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
== END 2020-11-28 10:50 | disposition home or self-care (01) | DRG 690 ==
LOC: ED 21:18 → AC 21:48
PROVIDERS: Internal Medicine; Admitting Provider Nurse Practitioner Family; Emergency Provider Student in an Organized Health Care Education/Training Program; Visit Provider Nurse Practitioner Family
DX: N10 Acute pyelonephritis (principal); R78.81 Bacteremia; Z68.1 Body mass index [BMI] 19.9 or less, adult; B96.20 Unspecified Escherichia coli [E. coli] as the cause of diseases classified elsewhere; R63.6 Underweight; N17.0 Acute kidney failure with tubular necrosis; N14.1 Nephropathy induced by other drugs, medicaments and biological substances; T50.8X5A Adverse effect of diagnostic agents, initial encounter; F17.210 Nicotine dependence, cigarettes, uncomplicated; Z20.822 Contact with and (suspected) exposure to COVID-19
CPT/HCPCS: 36415; 36592; 76770; 80048; 80053; 82962; 83036; 83605; 83735; 85025; 87040; 87205; 87635; 94760; 96365; 99284; 99406; C9803; J0696; J1650; J1815; J1885; J7121